=== PATIENT | female | born 1945 | race Caucasian/White ===

== ENCOUNTER → 2018-04-29 07:36 | Outpatient (CLI) | payer OTHER, MEDICARE, SELFPAY ==
--- NOTE | 2018-04-29 | DI.MG.S_ITS ---
BILATERAL DIGITAL SCREENING MAMMOGRAM 3D/2D WITH CAD: 04/29/2018 CLINICAL: Routine screening. Comparison is made to exams dated: 04/23/2017 mammogram, 04/22/2016 mammogram, and 12/24/2014 mammogram - [facility]. There are scattered fibroglandular elements in both breasts. Current study was also evaluated with a Computer Aided Detection (CAD) system. There are benign vascular calcifications in both breasts. No significant masses, calcifications, or other findings are seen in either breast. There has been no significant interval change. IMPRESSION: BENIGN There is no mammographic evidence of malignancy. A 1 year screening mammogram is recommended. This exam was interpreted at Station ID: [id number]. NOTE: For mammograms, a report in lay terms will be sent to the patient. Approximately 15% of breast malignancies will not be visualized mammographically. In the management of a palpable breast mass, a negative mammogram must not discourage biopsy of a clinically suspicious lesion. Electronically Signed By: Miguel A miranda/vivien:05/01/2018 21:13:23 letter sent: Normal Exam ACR BI-RADS Category 2: Benign Finding(s) 3342F
== END ==
PROVIDERS: Visit Provider Internal Medicine
DX: Z12.31 Encounter for screening mammogram for malignant neoplasm of breast (principal)
CPT/HCPCS: 77063; 77067

== ENCOUNTER → 2018-10-11 09:28 | Outpatient (CLI) | payer OTHER, MEDICARE, SELFPAY ==
[2018-10-14 18:09] LABS: Fecal Immunochemical Test NOT DETECTED (NOT DETECTED)
== END ==
PROVIDERS: PCP Student in an Organized Health Care Education/Training Program; Visit Provider Student in an Organized Health Care Education/Training Program
DX: Z00.00 Encounter for general adult medical examination without abnormal findings (principal); Z12.11 Encounter for screening for malignant neoplasm of colon
CPT/HCPCS: 82274

== ENCOUNTER → 2018-10-12 09:03 | Outpatient (CLI) | payer OTHER, MEDICARE, SELFPAY ==
[2018-10-12 10:08] LABS: Cholesterol 301 mg/dL (140-199); HDL Cholesterol 45 mg/dL (40-60); LDL Cholesterol Calculated 179 mg/dL (<100); Triglycerides 384 mg/dL (35-150)
== END ==
PROVIDERS: PCP Student in an Organized Health Care Education/Training Program; Visit Provider Student in an Organized Health Care Education/Training Program
DX: R20.2 Paresthesia of skin (principal)
CPT/HCPCS: 36415; 80061

== ENCOUNTER 2019-02-14 09:16 | Emergency (ER) | payer OTHER, SELFPAY ==
[2019-02-14 09:25] VITALS: BP 150/80; PULSE 97; RESP 16; TEMP 36.8; O2SAT 97; BMI 21.8
--- NOTE | 2019-02-14 09:29 | DI.RAD.S_ITS ---
PROCEDURE: XR ANKLE RT MIN 3V INDICATIONS: injury TECHNIQUE: 3 views of the ankle were acquired. COMPARISON: [facility], , ANKLE 3 VIEWS LEFT, 11/05/2008, 13:41. FINDINGS: Bones: There is a nondisplaced transverse fracture identified through the tip of the lateral malleolus. Irregular ovoid ossific structures are evident at the tip of the medial malleolus, which are well-corticated and appear to represent sequela from previous trauma. The ankle mortise is well-maintained. There are mild degenerative changes of the tibiotalar joint. Soft tissues: There is an ankle effusion. Moderate soft tissue swelling about the lateral malleolus is present. IMPRESSION: 1. Nondisplaced fracture at the lateral malleolus. 2. Old injury of the medial malleolus. Dictated by: Pedro Munoz M.D. on 02/14/2019 at 8:56 Approved by: Pedro Munoz M.D. on 02/14/2019 at 9:03
--- NOTE | 2019-02-14 12:04 | ED.LOWEXIN ---
HPI - Extremity Injury (Lower) <Gloria Harrell, LIEUTENANT/DEPUTY-BC - Last Filed: 02/14/19 14:26> General Chief Complaint: Extremity Injury, Lower Stated Complaint: thinks right ankle is broken Time Seen by Provider: 02/14/19 11:44 Source: patient Mode of arrival: ambulatory Limitations: no limitations History of Present Illness HPI Narrative: The patient is a 73-year-old female who states she has history of back problems who presents after a ground level fall. Not know when her last tetanus was. She presents with a chief complaint of right ankle pain, as well as an abrasion to her left knee. She believes that she broke her right ankle. She states it hurts on the outside, but not on the inside. She states she was able to hobble on after the trip and fall. She states she tripped and fell because of weakness that has become a chronic issue with her left ankle and foot. She also has abrasion to her left knee. She does not know when her last tetanus was. She denies any numbness, tingling or other injuries. The patient drove herself to the emergency department. Related Data Home Medications Medication Instructions Recorded Confirmed CRANBERRY EXTRACT (Cranberry) 500 mg PO #0 05/11/11 12/26/18 Calcium Carbonate/Vitamin D 1 cap PO Q DAY #0 05/11/11 12/26/18 (#CALCIUM) Fish Oil (#FISH OIL) 1 iu PO #0 05/11/11 12/26/18 MULTIVITAMIN (#MULTIPLE VITAMINS) 1 cap PO Q DAY #0 05/11/11 12/26/18 VITAMIN B COMPLEX 1 cap PO #0 05/11/11 12/26/18 CHOLECALCIFEROL (VITAMIN D) 2,000 units PO QDAY #0 08/25/12 12/26/18 Chondroitin Sulfate/Glucosam #0 12/27/12 12/26/18 (GLUCOSAMINE/CHONDROITIN) aspirin 81 mg tablet,delayed 81 mg PO DAILY 12/06/18 12/26/18 release Previous Rx's Medication Instructions Recorded pravastatin 20 mg tablet 20 mg PO DAILY #30 tab 11/09/18 metaxalone 800 mg tablet 800 mg PO DAILY PRN #10 tab 12/06/18 prednisone 10 mg tablet 10 mg PO DAILY #14 tab 12/06/18 prednisone 50 mg tablet 50 mg PO DAILY #30 tab 12/06/18 prednisone 20 mg tablet 40 mg PO DAILY #15 tab 12/26/18 prednisone 5 mg tablet 5 mg PO DAILY #7 tab 12/26/18 gabapentin 100 mg capsule 100 mg PO BEDTIME #30 cap 01/11/19 hydrocodone-acetaminophen [Foreston] 1 tab PO Q4-6H PRN #10 tab 02/14/19 Allergies Allergy/AdvReac Type Severity Reaction Status Date / Time propoxyphene [From DARVON] Allergy Unknown Verified 02/14/19 09:23 Review of Systems <Gloria Harrell [facility] - Last Filed: 02/14/19 14:26> Review of Systems GENERAL: Denies chills, fatigue, malaise, fever, sweats. HEENT: Denies sinus pain, ear pain, sore throat, difficulty swallowing, dizziness. RESPIRATORY: Denies dyspnea, cough, wheezing, hemoptysis, sputum. CARDIOVASCULAR: Denies chest pain, palpitations, orthopnea, edema, GASTROINTESTINAL: Denies nausea, vomiting, abdominal pain, diarrhea, constipation, melena. : Denies dysuria, frequency, incontinence, hematuria, urinary retention. MUSCULOSKELETAL: See HPI SKIN: See HPI NEUROLOGIC: Denies weakness, headache, numbness, change in speech, confusion, seizures, incoordination. PSYCHIATRIC: No concerning psychosocial issues. 12 point review of systems is negative except for those stated above PFSH <Gloria Harrell [facility] - Last Filed: 02/14/19 14:26> Social History Smoking Status: Never smoker Exam <Gloria Harrell [facility] - Last Filed: 02/14/19 14:26> Narrative Exam Narrative: GENERAL: This is a well-nourished, well-developed patient, in no acute distress HEAD: Atraumatic. Normocephalic. No temporal or scalp tenderness. EYES: Pupils equal round and reactive. Extraocular motions intact. No scleral icterus. No injection or drainage. ENT: Nose without bleeding, purulent drainage or septal hematoma. Throat without erythema, tonsillar hypertrophy or exudate. Uvula midline. Airway patent. NECK: Trachea midline. No JVD or lymphadenopathy. Supple, nontender, no meningeal signs. CARDIOVASCULAR: Regular rate and rhythm RESPIRATORY: No cough. No increased respiratory effort. No accessory muscle use. GASTROINTESTINAL: Abdomen soft, non-tender, nondistended. No hepato-splenomegaly, or palpable masses. No guarding. EXTREMITIES: Pain to palpation right ankle. Swelling noted lateral aspect. No pain to palpation medial aspect of right ankle. Positive pedal pulses. Slight ecchymosis noted lateral malleolus. Patient is able to flex and extend right ankle. BACK: Nontender without deformity or crepitance. No flank tenderness. NEURO: AOx3. SKIN: Small abrasion noted to cm left knee Initial Vital Signs Initial Vital Signs: Vital Signs Temperature 98.2 F 02/14/19 09:25 Pulse Rate 97 H 02/14/19 09:25 Respiratory Rate 16 02/14/19 09:25 Blood Pressure 150/80 H 02/14/19 09:25 Pulse Oximetry 97 02/14/19 09:25 <Nika Gilbert MD - Last Filed: 02/14/19 20:36> Initial Vital Signs Initial Vital Signs: Vital Signs Temperature 98.2 F 02/14/19 09:25 Pulse Rate 97 H 02/14/19 09:25 Respiratory Rate 16 02/14/19 09:25 Blood Pressure 150/80 H 02/14/19 09:25 Pulse Oximetry 97 02/14/19 09:25 Procedures <TRA Sandhu - Last Filed: 02/14/19 14:26> Orthopedic Splinting/Casting Injury #1: Side: right Lower Extremity Injury Location: ankle Lower Extremity Immobilizer: boot orthosis Other Orthopedic Equipment: crutches Post splinting neuro exam: intact Post splinting vascular exam: intact Placed by: Nursing Course <TRA Sandhu - Last Filed: 02/14/19 14:26> Orders Ordered: Discontinued Medications Diphtheria/Tetanus/Acell Pertussis (Adacel) 0.5 ml IM .ONCE ONE Stop: 02/14/19 11:52 Last Admin: 02/14/19 12:05 Dose: 0.5 ml Vital Signs - 8 hr 02/14/19 13:00 Pulse Rate 94 H Respiratory Rate 20 Blood Pressure 157/88 H Pulse Oximetry 100 <Nika Gilbert MD - Last Filed: 02/14/19 20:36> Orders Ordered: Discontinued Medications Diphtheria/Tetanus/Acell Pertussis (Adacel) 0.5 ml IM .ONCE ONE Stop: 02/14/19 11:52 Last Admin: 02/14/19 12:05 Dose: 0.5 ml Vital Signs - 8 hr 02/14/19 13:00 Pulse Rate 94 H Respiratory Rate 20 Blood Pressure 157/88 H Pulse Oximetry 100 MDM - Extremity Injury (Lower) <Gloria HarrellSTEVE-BC - Last Filed: 02/14/19 14:26> Imaging Data Ankle x-ray: Radiologist's impression: Aquiles Vasquez 73 F 1945 [place] [address] XRay Report Signed Patient: Aquiles Vasquez AMR#: [id number] : 5Acct:[id number] Age/Sex: 73 / FDate of Service: 02/14/19 Loc: ED Accession Number: [id number] Procedure: XR ankle RT min 3V Ordering Provider: Nika Gilbert MD PROCEDURE: XR ANKLE RT MIN 3V INDICATIONS: injury TECHNIQUE: 3 views of the ankle were acquired. COMPARISON: [facility], , ANKLE 3 VIEWS LEFT, 11/05/2008, 13:41. FINDINGS: Bones: There is a nondisplaced transverse fracture identified through the tip of the lateral malleolus. Irregular ovoid ossific structures are evident at the tip of the medial malleolus, which are well-corticated and appear to represent sequela from previous trauma. The ankle mortise is well-maintained. There are mild degenerative changes of the tibiotalar joint. Soft tissues: There is an ankle effusion. Moderate soft tissue swelling about the lateral malleolus is present. IMPRESSION: 1. Nondisplaced fracture at the lateral malleolus. 2. Old injury of the medial malleolus. Dictated by: Pedro Munoz M.D. on 02/14/2019 at 8:56 Approved by: Pedro Munoz M.D. on 02/14/2019 at 9:03 MDM Narrative Medical decision making narrative: The patient is a 73-year-old female who presents with a chief complaint of right ankle injury. X-ray illustrates lateral malleolus fracture, so the patient was placed in a boot as well as given crutches. I was not comfortable giving the patient a splint given her history of recent falls and she complains of chronic weakness on her left ankle and foot. Thus I am concerned that a splint would increase her risk of falls. I did discuss refraining from weight-bearing as able. Using crutches. She was given a prescription of Foreston. I discussed at length follow up with Orthopedics. Patient's x-rays reviewed with Dr. Gilbert and plan of care discussed. Given the patient's abrasion, her tetanus was updated. Discussed at length follow up with PCP as well as Orthopedics. Patient has no questions or concerns upon discharge. I discussed that she is neurovascularly intact, she has any concerns about neurovascular status come back to the ER as well as to come back to the ER for any acute concerns Discharge Plan Departure Patient Disposition: Home Clinical Impression: Abrasion, Fall from ground level Ankle fracture, lateral malleolus, closed Qualifiers: Encounter type: initial encounter Fracture alignment: nondisplaced Laterality: right Qualified Code(s): S82.64XA - Nondisplaced fracture of lateral malleolus of right fibula, initial encounter for closed fracture Discharge Date/Time: 02/14/19 12:49 Interventions: ED Discharge Assessment Last Done: 02/14/19 13:00 Instructions: How to Use Crutches, DI for Ankle Fracture, How To Perform RICE (Rest, Ice, Compress, Elevate), DI for Abrasion Activity Restrictions/Additional Instructions: Unfortunately you broke your ankle. We have placed you in a boot and given crutches Please try to remain nonweightbearing. Please use rest ice compression elevation. Please follow-up with [facility]. Please also follow up with primary care provider Please come back to the emergency department for any concerns such as decreased circulation to your toes. We also updated your tetanus. Please monitor your abrasion for signs and symptoms of infection such as redness pus and swelling. Please be aware that Foreston can be constipating and sedating. Prescriptions: New hydrocodone-acetaminophen [Foreston] 5-325 mg tablet 1 tab PO Q4-6H PRN (Reason: pain) Qty: 10 RF: 0 No Action Calcium Carbonate/Vitamin D (#CALCIUM) 1 cap PO Q DAY Qty: 0 RF: 0 MULTIVITAMIN (#MULTIPLE VITAMINS) 1 cap PO Q DAY Qty: 0 RF: 0 Fish Oil (#FISH OIL) 1 iu PO Qty: 0 RF: 0 VITAMIN B COMPLEX 1 cap PO Qty: 0 RF: 0 CRANBERRY EXTRACT (Cranberry) 500 mg PO Qty: 0 RF: 0 CHOLECALCIFEROL (VITAMIN D) 2,000 units PO QDAY Qty: 0 RF: 0 Chondroitin Sulfate/Glucosam (GLUCOSAMINE/CHONDROITIN) Qty: 0 RF: 0 oxyquinoline-sod.lauryl sulfat 113.4 GM gel Qty: 1 RF: 0 oxyquinoline-sod.lauryl sulfat 113.4 GM gel Qty: 2 RF: 0 pravastatin 20 mg tablet 20 mg PO DAILY Qty: 30 RF: 5 gabapentin 100 mg capsule 100 mg PO BEDTIME Qty: 30 RF: 5 aspirin 81 mg tablet,delayed release (DR/EC) 81 mg PO DAILY RF: 0 prednisone 50 mg tablet 50 mg PO DAILY Qty: 30 RF: 0 metaxalone [Skelaxin] 800 mg tablet 800 mg PO DAILY PRN (Reason: muscle pain/spasms) Qty: 10 RF: 1 Hold Instructions: Not working for pain prednisone 10 mg tablet 10 mg PO DAILY Qty: 14 RF: 0 prednisone 20 mg tablet 40 mg PO DAILY Qty: 15 RF: 0 prednisone 5 mg tablet 5 mg PO DAILY Qty: 7 RF: 0 Referrals: [facility] [Provider Group] Rufus Magaña MD [Primary Care Provider] - Stand Alone Forms: Work Release Note
[2019-02-14] MEDS: TET,DIPH,PERTUSS(ACELL),VAC/PF 0.5 ML SYRINGE IM (12:05)
[2019-02-14 13:00] VITALS: BP 157/88; PULSE 94; RESP 20; O2SAT 100
== END 2019-02-14 12:49 | disposition home or self-care (01) ==
PROVIDERS: Emergency Provider Nurse Practitioner Family; PCP Student in an Organized Health Care Education/Training Program; Referring Provider Orthopaedic Surgery Orthopaedic Surgery of the Spine
DX: S82.64XA Nondisplaced fracture of lateral malleolus of right fibula, initial encounter for closed fracture (principal); W01.0XXA Fall on same level from slipping, tripping and stumbling without subsequent striking against object, initial encounter; Y99.0 Civilian activity done for income or pay; Z23 Encounter for immunization
CPT/HCPCS: 29580; 73610; 90471; 99283; 90715

== ENCOUNTER → 2019-05-03 09:34 | Outpatient (CLI) | payer OTHER, MEDICARE, SELFPAY ==
--- NOTE | 2019-05-03 | DI.MG.S_ITS ---
BILATERAL DIGITAL SCREENING MAMMOGRAM 3D/2D WITH CAD: 05/03/2019 CLINICAL: Routine screening. Comparison is made to exams dated: 04/29/2018 mammogram, 04/23/2017 mammogram, 04/22/2016 mammogram, 12/24/2014 mammogram, and 12/04/2013 mammogram - [facility]. There are scattered fibroglandular elements in both breasts. Current study was also evaluated with a Computer Aided Detection (CAD) system. There are benign vascular calcifications in both breasts. No significant masses, calcifications, or other findings are seen in either breast. There has been no significant interval change. IMPRESSION: There is no mammographic evidence of malignancy. A 1 year screening mammogram is recommended. This exam was interpreted at Station ID: [id number]. NOTE: For mammograms, a report in lay terms will be sent to the patient. Approximately 15% of breast malignancies will not be visualized mammographically. In the management of a palpable breast mass, a negative mammogram must not discourage biopsy of a clinically suspicious lesion. Electronically Signed By: Dwight macdonald/vivien:05/03/2019 19:28:41 letter sent: Normal Exam ACR BI-RADS Category 2: Benign Finding(s) 3342F
== END ==
PROVIDERS: PCP Nurse Practitioner; Visit Provider Nurse Practitioner
DX: Z12.31 Encounter for screening mammogram for malignant neoplasm of breast (principal)
CPT/HCPCS: 77063; 77067

== ENCOUNTER → 2019-09-18 09:21 | Outpatient (CLI) | payer OTHER, MEDICARE, SELFPAY | PROVIDERS: PCP Nurse Practitioner | DX: Z12.11 Encounter for screening for malignant neoplasm of colon (principal) | CPT/HCPCS: 82274 ==

== ENCOUNTER → 2019-10-23 10:05 | Outpatient (CLI) | payer OTHER, MEDICARE, SELFPAY ==
[2019-10-25 17:35] LABS: Fecal Immunochemical Test DETECTED (NOT DETECTED)
== END ==
PROVIDERS: PCP Nurse Practitioner
DX: Z12.11 Encounter for screening for malignant neoplasm of colon (principal)
CPT/HCPCS: 82274

== ENCOUNTER → 2020-02-12 14:12 | Outpatient (CLI) | payer OTHER, MEDICARE, SELFPAY | PROVIDERS: PCP Nurse Practitioner; Referring Provider Nurse Practitioner; Visit Provider Nurse Practitioner | DX: M81.0 Age-related osteoporosis without current pathological fracture (principal); Z78.0 Asymptomatic menopausal state; Z82.62 Family history of osteoporosis | CPT/HCPCS: 77080 ==

== ENCOUNTER → 2020-02-16 09:25 | Outpatient (CLI) | payer OTHER, MEDICARE, SELFPAY | PROVIDERS: PCP Nurse Practitioner | DX: Z12.11 Encounter for screening for malignant neoplasm of colon (principal) | CPT/HCPCS: 82274 ==

== ENCOUNTER → 2020-05-06 10:48 | Outpatient (CLI) | payer MEDICARE, OTHER, SELFPAY ==
--- NOTE | 2020-05-06 11:07 | DI.MG.S_ITS ---
Patient Name: NABIL MALIK date: 1945 Sex: F Attending Physician: Sohail Indications: Date: 05/06/2020 11:07 At the request of: RUSSELL MURPHY Procedure: MM screening mammo BI BILATERAL DIGITAL SCREENING MAMMOGRAM 3D/2D WITH CAD: 05/06/2020 CLINICAL: Routine screening. Comparison is made to exams dated: 05/06/2020 mammogram, 05/03/2019 mammogram, and 04/29/2018 mammogram - [facility]. There are scattered fibroglandular elements in both breasts. Current study was also evaluated with a Computer Aided Detection (CAD) system. There are benign vascular calcifications in both breasts. No significant masses, calcifications, or other findings are seen in either breast. There has been no significant interval change. IMPRESSION: BENIGN There is no mammographic evidence of malignancy. A 1 year screening mammogram is recommended. This exam was interpreted at Station ID: [id number]. NOTE: For mammograms, a report in lay terms will be sent to the patient. Approximately 15% of breast malignancies will not be visualized mammographically. In the management of a palpable breast mass, a negative mammogram must not discourage biopsy of a clinically suspicious lesion. Electronically Signed By: Harmony hunter/vivien:05/06/2020 13:56:53 letter sent: Normal Exam ACR BI-RADS Category 2: Benign Finding(s) 3342F
== END ==
PROVIDERS: PCP Nurse Practitioner; Referring Provider Nurse Practitioner; Visit Provider Nurse Practitioner
DX: Z12.31 Encounter for screening mammogram for malignant neoplasm of breast (principal)
CPT/HCPCS: 77063; 77067

== ENCOUNTER → 2020-09-17 15:26 | Outpatient (CLI) | payer MEDICARE, OTHER, SELFPAY ==
[2020-09-17] MEDS: COVID-19 VACC #1, MRNA(MOD) 100 MCG/0.5 ML VIAL IM (15:33)
== END ==
PROVIDERS: PCP Nurse Practitioner; Visit Provider Internal Medicine
DX: Z23 Encounter for immunization (principal)
CPT/HCPCS: 0011A; 91301

== ENCOUNTER → 2020-10-15 15:34 | Outpatient (CLI) | payer MEDICARE, OTHER, SELFPAY ==
[2020-10-15] MEDS: COVID-19 VACC #2, MRNA(MOD) 100 MCG/0.5 ML VIAL IM (15:41)
== END ==
PROVIDERS: PCP Nurse Practitioner; Visit Provider Internal Medicine
DX: Z23 Encounter for immunization (principal)
CPT/HCPCS: 0012A; 91301

== ENCOUNTER → 2021-02-10 07:42 | Outpatient (CLI) | payer MEDICARE, OTHER, SELFPAY ==
[2021-02-10 09:33] LABS: Alanine Aminotransferase 22 IU/L (<35); Albumin Globulin Ratio 1.5 (1.0-2.8); Alkaline Phosphatase 47 U/L (38-126); Aspartate Aminotransferase 27 IU/L (14-36); BUN Creatinine Ratio 28.3 (6-22); Bilirubin Total 0.6 mg/dL (0.2-1.3); Blood Urea Nitrogen 17 mg/dL (7-17); Calcium 9.5 mg/dL (8.4-10.2); Carbon Dioxide 26 mmol/L (22-32); Chloride 105 mmol/L (98-107); Cholesterol 244 mg/dL (140-199); Estimated Glomerular Filt Rate > 60.0 mL/min (>60); Globulin 2.7 g/dL (1.7-4.1); Glucose 103 mg/dL (80-110); HDL Cholesterol 41 mg/dL (40-60); HEMOLYSIS < 15 (0-50); LDL Cholesterol Calculated 132 mg/dL (<100); Potassium 4.2 mmol/L (3.4-5.1); Sodium 138 mmol/L (137-145); Total Protein 6.7 g/dL (6.3-8.2); Triglycerides 357 mg/dL (35-150)
[2021-02-10 09:45] LABS: Free T3, Triiodothyronine Free 3.76 pg/mL (2.77-5.27)
[2021-02-10 09:46] LABS: Free T4, Direct Thyroxine 0.82 ng/dL (0.78-2.19)
[2021-02-10 10:00] LABS: Thyroid Stimulating Hormone 2.41 uIU/mL (0.47-4.68)
== END ==
PROVIDERS: PCP Nurse Practitioner; Referring Provider Nurse Practitioner; Visit Provider Nurse Practitioner
DX: E78.2 Mixed hyperlipidemia (principal); Z79.899 Other long term (current) drug therapy
CPT/HCPCS: 36415; 80053; 80061; 84439; 84443; 84481

== ENCOUNTER → 2021-05-15 18:06 | Outpatient (CLI) | payer MEDICARE, OTHER, SELFPAY ==
--- NOTE | 2021-05-15 18:08 | DI.MG.S_ITS ---
BILATERAL DIGITAL SCREENING MAMMOGRAM 3D/2D WITH CAD: 05/15/2021 CLINICAL: Routine screening. Comparison is made to exams dated: 05/06/2020 mammogram, 05/06/2020 mammogram, and 05/03/2019 mammogram - [facility]. There are scattered fibroglandular elements in both breasts. Current study was also evaluated with a Computer Aided Detection (CAD) system. There are benign vascular calcifications in both breasts. No significant masses, calcifications, or other findings are seen in either breast. There has been no significant interval change. IMPRESSION: BENIGN There is no mammographic evidence of malignancy. A 1 year screening mammogram is recommended. This exam was interpreted at Station ID: [id number]. NOTE: For mammograms, a report in lay terms will be sent to the patient. Approximately 15% of breast malignancies will not be visualized mammographically. In the management of a palpable breast mass, a negative mammogram must not discourage biopsy of a clinically suspicious lesion. Electronically Signed By: Jackie caceres/vivien:05/16/2021 09:00:50 letter sent: Normal Exam ACR BI-RADS Category 2: Benign Finding(s) 3342F
== END ==
PROVIDERS: PCP Nurse Practitioner; Referring Provider Nurse Practitioner; Visit Provider Nurse Practitioner
DX: Z12.31 Encounter for screening mammogram for malignant neoplasm of breast (principal)
CPT/HCPCS: 77063; 77067

== ENCOUNTER → 2021-06-21 09:31 | Outpatient (CLI) | payer MEDICARE, OTHER, SELFPAY | PROVIDERS: PCP Nurse Practitioner; Referring Provider Physician Assistant; Visit Provider Physician Assistant | DX: R35.0 Frequency of micturition (principal) | CPT/HCPCS: 87077; 87086; 87147; 87186 ==

== ENCOUNTER → 2021-07-08 10:20 | Outpatient (CLI) | payer MEDICARE, OTHER, SELFPAY ==
[2021-07-08 11:14] LABS: Appearance Urine UA CLEAR; Bilirubin Urine UA NEGATIVE (NEGATIVE); Color Urine UA YELLOW; Glucose Urine UA NEGATIVE (Negative); Ketones Urine UA NEGATIVE (NEGATIVE); Leukocyte Esterase Urine UA 1+ (NEGATIVE); Nitrite Urine UA NEGATIVE (Negative); Occult Blood Urine UA 2+ (Negative); Protein Urine UA 1+ (Negative); Urobilinogen Urine UA 0.2 E.U./dL (0.2)
[2021-07-08 11:21] LABS: pH Urine UA 5.5 (4.5-8.0)
[2021-07-08 11:22] LABS: RBC Urine 5-10/HPF (0-5/HPF); Squamous Epithelial Cell Urine 5-10 /HPF (0-5/HPF); WBC Urine 5-10/HPF (0-5/HPF)
[2021-07-08 11:23] LABS: Bacteria Urine None Seen; Culture Indicated Urine Cult Not Indicated; Mucus Urine 1+ (Negative)
== END ==
PROVIDERS: PCP Nurse Practitioner; Referring Provider Nurse Practitioner Family; Visit Provider Nurse Practitioner Family
DX: Z87.440 Personal history of urinary (tract) infections (principal); N39.0 Urinary tract infection, site not specified
CPT/HCPCS: 81003; 81015; 87086

== ENCOUNTER → 2021-07-09 09:04 | Outpatient (CLI) | payer MEDICARE, OTHER, SELFPAY ==
[2021-07-10 19:52] LABS: C difficie Toxins A and B, EIA Negative (Negative)
== END ==
PROVIDERS: PCP Nurse Practitioner; Referring Provider Nurse Practitioner Family; Visit Provider Nurse Practitioner Family
DX: R19.7 Diarrhea, unspecified (principal)
CPT/HCPCS: 87045; 87177; 87324; 87899

== ENCOUNTER 2021-07-14 07:14 | Emergency (ER) | payer MEDICARE, OTHER, SELFPAY ==
[2021-07-14 07:26] VITALS: BP 170/97; PULSE 109; RESP 18; TEMP 37.2; O2SAT 99; BMI 23.3
--- NOTE | 2021-07-14 07:28 | ED.GENADULT ---
HPI - General Adult General Chief complaint: Nasal Problem Stated complaint: nose bleed x20 min Time Seen by Provider: 07/14/21 07:17 Source: patient Mode of arrival: Ambulatory Limitations: no limitations History of Present Illness HPI narrative: Patient is a 75-year-old female here for evaluation of a nose bleed. She has had multiple nose bleeds in the past. She is not on any blood thinning medications. She denies even taking aspirin. No trauma. Started bleeding this morning. Tried Afrin at home. She feels like it is coming from the right nostril mostly but is also coming from the left as well. Related Data Home Medications Medication Instructions Recorded Confirmed CRANBERRY EXTRACT (Cranberry) 500 mg PO #0 05/11/11 07/08/21 Calcium Carbonate/Vitamin D 1 cap PO Q DAY #0 05/11/11 07/08/21 (#CALCIUM) Fish Oil (#FISH OIL) 1 iu PO #0 05/11/11 07/08/21 MULTIVITAMIN (#MULTIPLE VITAMINS) 1 cap PO Q DAY #0 05/11/11 07/08/21 VITAMIN B COMPLEX 1 cap PO #0 05/11/11 07/08/21 CHOLECALCIFEROL (VITAMIN D) 2,000 units PO QDAY #0 08/25/12 07/08/21 Chondroitin Sulfate/Glucosam #0 12/27/12 07/08/21 (GLUCOSAMINE/CHONDROITIN) aspirin 81 mg tablet,delayed 81 mg PO DAILY 12/06/18 07/08/21 release Previous Rx's Medication Instructions Recorded permethrin 5 % topical cream 1 applictn TOP Q14D #60 gram 03/25/20 oxyquinoline 0.025 %-sodium lauryl 1 ea VAGINAL .2-3 x weekly #226.8 g 08/12/20 sulfate 0.01 % vaginal gel alendronate 70 mg tablet 70 mg PO QWEEK #14 tab 02/18/21 pravastatin 20 mg tablet 20 mg PO DAILY #90 tab 02/18/21 estradiol 1 g VAGINAL DAILY #42.5 g 04/18/21 ciprofloxacin HCl 500 mg tablet 500 mg PO Q12H #10 tab 06/24/21 (Cipro) fluconazole 150 mg tablet 150 mg PO Q3D PRN #2 tab 06/24/21 Allergies Allergy/AdvReac Type Severity Reaction Status Date / Time propoxyphene [From DARVON] Allergy Unknown Verified 07/14/21 07:26 Review of Systems Constitutional Constitutional: Denies headache(s) ENT Ears, Nose, Mouth, and Throat: Reports system reviewed and no additional complaints, except as documented, Reports as per HPI and Denies headache(s) Cardiovascular Cardiovascular: Reports system reviewed and no additional complaints, except as documented Respiratory Respiratory: Reports system reviewed and no additional complaints, except as documented Gastrointestinal Gastrointestinal: Reports system reviewed and no additional complaints, except as documented Neurologic Neurologic: Denies headache(s) Hematologic/Lymphatic On Anticoagulants: No Patient History Medical History Atrophic vaginitis Chicken pox Contusion of right upper arm (10/23/15) Fractures Frequency of urination Giant cell arteritis Hayfever Hyperlipidemia Malignant melanoma of skin of chin Measles Mixed hyperlipidemia Mumps Nasal bone fracture Osteopenia Osteoporosis PMR (polymyalgia rheumatica) Post-menopausal atrophic vaginitis Prolapse of vaginal vault after hysterectomy Vaginal erosion secondary to pessary use Surgical History Anesthesia History of bladder suspension procedure (2009) Status post hysterectomy (1970) Status post wrist surgery (~2008) Family History Brother No problems noted. Father MVA (motor vehicle accident) Mother No problems noted. Grandfather No problems noted. Grandmother No problems noted. Grandfather No problems noted. Grandmother No problems noted. Sister No problems noted. Social History Smoking Status: Never smoker Smoking Status: Never smoker Exam Initial Vital Signs Initial Vital Signs: Vital Signs Temperature 98.9 F 07/14/21 07:26 Pulse Rate 109 H 07/14/21 07:26 Respiratory Rate 18 07/14/21 07:26 Blood Pressure 170/97 H 07/14/21 07:26 Pulse Oximetry 99 07/14/21 07:26 Const General: cooperative and healthy appearing HENMT Nose: septum normal and epistaxis (Clots in the right nares.) Resp Effort & Inspection: normal respiratory effort Cardio Rate: regular rate Skin General: no rashes or lesions noted Neuro General: patient alert, patient awake, patient oriented x3 and moves all extremities Extrem General: capillary refill normal Psych Appearance: grossly normal and well kempt Course Orders Ordered: Discontinued Medications Oxymetazoline HCl (Oxymetazoline Nasal [place] 15 Ml) 2 sprays NASAL NOW ONE Stop: 07/14/21 07:18 Last Admin: 07/14/21 07:47 Dose: 2 sprays Documented by: Vital Signs Vital signs: Vital Signs - 8 hr 07/14/21 07:26 Temperature 98.9 F Pulse Rate 109 H Respiratory Rate 18 Blood Pressure 170/97 H Pulse Oximetry 99 Medical Decision Making MDM Narrative Medical decision making narrative: With Afrin and pressure we were able to stop the bleeding. There is no signs of any trauma. No signs of any septal hematoma. Will discharge patient home. She was given a nasal clamp to use at home with needed. We discussed return precautions and follow-up instructions. She expressed understanding and agreement. Discharge Plan Departure Patient Disposition: Home Clinical Impression: Epistaxis Instructions: DI for Nosebleed Activity Restrictions/Additional Instructions: Continue to take all of your medications as directed. If you dose starts to bleed again performed the procedure that we discussed here in the ER. Return to the emergency department for any new or worsening symptoms. Prescriptions: No Action Calcium Carbonate/Vitamin D (#CALCIUM) 1 cap PO Q DAY Qty: 0 0RF MULTIVITAMIN (#MULTIPLE VITAMINS) 1 cap PO Q DAY Qty: 0 0RF Fish Oil (#FISH OIL) 1 iu PO Qty: 0 0RF VITAMIN B COMPLEX 1 cap PO Qty: 0 0RF CRANBERRY EXTRACT (Cranberry) 500 mg PO Qty: 0 0RF CHOLECALCIFEROL (VITAMIN D) 2,000 units PO QDAY Qty: 0 0RF Chondroitin Sulfate/Glucosam (GLUCOSAMINE/CHONDROITIN) Qty: 0 0RF permethrin 5 % cream 1 applictn TOP Q14D Qty: 60 0RF Rx Instructions: apply second treatment 14 days after first treatment if live lice remain oxyquinoline-sod.lauryl sulfat 0.025-0.01 % gel 1 ea vaginal .2-3 x weekly Qty: 226.8 2RF estradiol 0.01 % (0.1 mg/gram) cream 1 g vaginal DAILY Qty: 42.5 12RF Rx Instructions: for 14 days, then at bedtime 3 nights each week ciprofloxacin HCl [Cipro] 500 mg tablet 500 mg PO Q12H Qty: 10 0RF fluconazole 150 mg tablet 150 mg PO Q3D PRN (Reason: Yeast infection) Qty: 2 1RF Rx Instructions: Take 1 tab each morning every 72 hours x2 doses. aspirin 81 mg tablet,delayed release (DR/EC) 81 mg PO DAILY 0RF pravastatin 20 mg tablet 20 mg PO DAILY Qty: 90 3RF Rx Instructions: Take one tablet by mouth once daily in the evening. alendronate 70 mg tablet 70 mg PO QWEEK Qty: 14 3RF Rx Instructions: Take 1 tab by mouth on an empty stomach 30 minutes prior to breakfast daily Referrals: Judi Sauceda ARNP [Primary Care Provider] -
[2021-07-14] MEDS: OXYMETAZOLINE NASAL SPRAY 15 ML 2 SPRAYS NASAL (07:47)
== END 2021-07-14 08:33 | disposition home or self-care (01) ==
PROVIDERS: Emergency Provider Emergency Medicine; PCP Nurse Practitioner
DX: R04.0 Epistaxis (principal)
CPT/HCPCS: 99282; A9270

== ENCOUNTER → 2022-01-06 08:59 | Outpatient (CLI) | payer MEDICARE, OTHER, SELFPAY | PROVIDERS: PCP Nurse Practitioner; Visit Provider Physician Assistant | DX: R30.0 Dysuria (principal) | CPT/HCPCS: 87086 ==

== ENCOUNTER → 2022-03-13 10:04 | Outpatient (CLI) | payer MEDICARE, OTHER, SELFPAY | PROVIDERS: PCP Nurse Practitioner; Referring Provider Nurse Practitioner; Visit Provider Nurse Practitioner | DX: Z13.820 Encounter for screening for osteoporosis; Z78.0 Asymptomatic menopausal state; M85.89 Other specified disorders of bone density and structure, multiple sites | CPT/HCPCS: 77080 ==

== ENCOUNTER → 2022-06-05 12:52 | Outpatient (CLI) | payer MEDICARE, OTHER, SELFPAY ==
--- NOTE | 2022-06-05 | DI.MG.S_ITS ---
BILATERAL DIGITAL SCREENING MAMMOGRAM 3D/2D WITH CAD: 06/05/2022 CLINICAL: Routine screening. Comparison is made to exams dated: 05/15/2021 mammogram, 05/06/2020 mammogram, 05/03/2019 mammogram, and 05/06/2020 mammogram - [facility]. There are scattered areas of fibroglandular density in both breasts (category b / 25%-50% glandular tissue). Current study was also evaluated with a Computer Aided Detection (CAD) system. There are benign vascular calcifications in both breasts. No significant masses, calcifications, or other findings are seen in either breast. There has been no significant interval change. IMPRESSION: BENIGN There is no mammographic evidence of malignancy. A 1 year screening mammogram is recommended. Based on the Tyrer Cuzick model (a risk assessment model) the patient's lifetime risk is 2.4% and her 10 year risk is 0.0%. According to the ACR, ACS, and NCCN guidelines, an annual breast MRI exam along with mammogram is recommended if the patient's lifetime risk is 20% or greater. This exam was interpreted at Station ID: [id number]. NOTE: For mammograms, a report in lay terms will be sent to the patient. Approximately 15% of breast malignancies will not be visualized mammographically. In the management of a palpable breast mass, a negative mammogram must not discourage biopsy of a clinically suspicious lesion. Electronically Signed By: Jackie caceres/vivien:06/05/2022 16:23:37 letter sent: Normal Exam ACR BI-RADS Category 2: Benign Finding(s) 3342F
== END ==
PROVIDERS: PCP Nurse Practitioner; Referring Provider Nurse Practitioner; Visit Provider Nurse Practitioner
DX: Z12.31 Encounter for screening mammogram for malignant neoplasm of breast (principal)
CPT/HCPCS: 77063; 77067

== ENCOUNTER → 2022-07-14 07:50 | Outpatient (CLI) | payer MEDICARE, OTHER, SELFPAY ==
[2022-07-14 09:03] LABS: Add Manual Diff / Slide Review NO; Basophils Absolute Auto 0 /uL (0-100); Basophils Percent Auto 0.6 % (0-2); Eosinophils Absolute Auto 100 /uL (0-450); Eosinophils Percent Auto 1.3 % (2-4); Hematocrit 40.8 % (36-46); Hemoglobin 13.7 g/dL (12.0-16.0); Lymphocytes Absolute Auto 2200 /uL (1100-4500); Lymphocytes Percent Auto 44.1 % (25-40); Mean Corpuscular HGB Conc 33.6 % (30-36); Monocytes Absolute Auto 300 /uL (0-900); Monocytes Percent Auto 6.3 % (3-14); Neutrophils Absolute Auto 2400 /uL (1500-7000); Neutrophils Percent Auto 47.7 % (50-75); Platelet Count 255 X10^3/uL (150-400); Red Blood Cell Count 4.59 X10^6/uL (4.0-5.2); Red Cell Distribution Width 13.1 % (11.6-14.8); White Blood Cell Count 5.1 X10^3/uL (4.5-11.0)
[2022-07-14 09:37] LABS: HEMOLYSIS < 15 (0-50)
[2022-07-14 09:56] LABS: Alanine Aminotransferase 32 IU/L (<35); Albumin 4.1 g/dL (3.5-5.0); Albumin Globulin Ratio 1.4 (1.0-2.8); Alkaline Phosphatase 53 U/L (38-126); Aspartate Aminotransferase 29 IU/L (14-36); BUN Creatinine Ratio 24.3 (6-22); Bilirubin Total 0.5 mg/dL (0.2-1.3); Blood Urea Nitrogen 17 mg/dL (7-17); Calcium 9.2 mg/dL (8.4-10.2); Carbon Dioxide 29 mmol/L (22-32); Chloride 103 mmol/L (98-107); Cholesterol 254 mg/dL (140-199); Estimated Glomerular Filt Rate > 60 mL/min (>60); Globulin 2.9 g/dL (1.7-4.1); Glucose 95 mg/dL (80-110); HDL Cholesterol 43 mg/dL (40-60); Potassium 4.3 mmol/L (3.4-5.1); Sodium 139 mmol/L (137-145); Triglycerides 404 mg/dL (35-150)
[2022-07-14 10:04] LABS: Vitamin D 25 Hydroxy (D3) 46.1 ng/mL (30.0-100.0)
[2022-07-14 10:13] LABS: TSH w/ Reflex to FT4 4.31 uIU/mL (0.47-4.68)
[2022-07-14 15:49] LABS: Vitamin B12 863 pg/mL (239-931)
== END ==
PROVIDERS: PCP Nurse Practitioner; Referring Provider Nurse Practitioner; Visit Provider Nurse Practitioner
DX: Z00.00 Encounter for general adult medical examination without abnormal findings (principal); E78.5 Hyperlipidemia, unspecified; M81.0 Age-related osteoporosis without current pathological fracture; E56.9 Vitamin deficiency, unspecified; Z13.1 Encounter for screening for diabetes mellitus; Z13.6 Encounter for screening for cardiovascular disorders; Z13.29 Encounter for screening for other suspected endocrine disorder
CPT/HCPCS: 36415; 80053; 80061; 82306; 82607; 84443; 85025

== ENCOUNTER → 2022-09-11 08:46 | Outpatient (CLI) | payer MEDICARE, OTHER, SELFPAY ==
--- NOTE | 2022-09-11 08:47 | DI.US.S_ITS ---
PROCEDURE: US THYROID INDICATIONS: LEFT THYROID NODULE TECHNIQUE: Real-time scanning was performed of the thyroid gland, with image documentation. COMPARISON: None. FINDINGS: Right: Thyroid lobe measures 4 x 1.3 x 1.9 cm, and is homogeneous in echotexture. Left: Thyroid lobe measures 3.5 x 1.3 x 1.3 cm, and is homogenous in echotexture. Isthmus: 2.4 mm thick. Nodule number: 1 Location: Lateral periphery of right thyroid lobe upper to midpole. Size: 2.1 x 1.0 x 1.5 cm. Composition: Solid Echogenicity: Hypoechoic Shape: Wider than tall. Margins: Smooth Echogenic foci: None Total points: 4 ACR TI-RADS category: Moderately suspicious. Increased vascularity is noted within this nodule. IMPRESSION: 1. 2.1 x 1.0 x 1.5 cm moderately suspicious nodule in lateral aspect of midpole right thyroid lobe and show mildly increased vascularity. Consider fine-needle aspiration of this nodule for more definitive diagnosis. ACR TI-RADS definitions and recommendations: TI-RADS 1 (benign): 0 points. FNA not needed. TI-RADS 2 (not suspicious): 2 points. FNA not needed. TI-RADS 3 (mildly suspicious): 3 points. * FNA if 2.5 cm or larger, follow up if 1.5 cm or larger (at 1, 3, and 5 years). TI-RADS 4 (moderately suspicious): 4-6 points. * FNA if 1.5 cm or larger, follow up if 1 cm or larger (at 1, 2, 3, and 5 years). TI-RADS 5 (highly suspicious): 7 points or more. * FNA if 1 cm or larger, follow up if 0.5 cm or larger (every year for 5 years). Dictated by: Ayan Holcomb M.D. on 09/11/2022 at 15:20 Approved by: Ayan Holcomb M.D. on 09/11/2022 at 15:25
== END ==
PROVIDERS: PCP Nurse Practitioner; Referring Provider Nurse Practitioner; Visit Provider Nurse Practitioner
DX: E04.1 Nontoxic single thyroid nodule (principal)
CPT/HCPCS: 76536

== ENCOUNTER → 2022-09-24 10:00 | Outpatient (CLI) | payer MEDICARE, OTHER, SELFPAY ==
[2022-09-25 17:36] LABS: Fecal Immunochemical Test Negative (Negative)
== END ==
PROVIDERS: PCP Nurse Practitioner; Referring Provider Nurse Practitioner; Visit Provider Nurse Practitioner
DX: Z12.11 Encounter for screening for malignant neoplasm of colon (principal)
CPT/HCPCS: 82274

== ENCOUNTER → 2022-10-07 12:59 | Outpatient (CLI) | payer MEDICARE, OTHER, SELFPAY ==
--- NOTE | 2022-10-07 | PATH_ITS ---
Note [facility] Accession Number: [id number] TESTS RESULT FLAG UNITS REF RANGE LAB Clinician Provided Cytology Information No. of containers..01 Other (Miscellaneous) No. of containers..02 Previously Prepared Cytology Slide Source: RIGHT THYROID NODULE DIAGNOSIS: RIGHT THYROID NODULE NEGATIVE FOR MALIGNANT CELLS. B[place]ESDA CATEGORY II. SPECIMEN CONSISTS OF BENIGN FOLLICULAR CELLS, COLLOID, AND BLOOD. THIS PATTERN IS MOST CONSISTENT WITH A BENIGN FOLLICULAR NODULE. Pathologist ICD10: E04.1 Signed out by: Nika Rodriguez MD, Pathologist NPI- [id number] Performed by: Pito Hill, Simulation Software Engineer ([facility]) Gross description: 30 CC, PINK, CLEAR RECIEVED 6 ALCOHOL FIXED SLIDES IN 2 GREEN CAP COFFINS RECIEVED 6 FIXED SLIDES IN 2 SLIDE HOLDERS RECEIVED 1 RNA VIAL RECEIVED IN [employer] WHITE CAP CONTAINER /RZA 10/08/2022 1154 Local FLAG LEGEND: L-Low Normal,H-High Normal,LL-Alert Low,HH-Alert High <-Panic Low,>-Panic High,A-Abnormal,AA-Critical Abnormal Performed at: 01 =Z [facility] [address], [place] [address] Lukas Delgado MD, Performed at: [facility] [address], [place], [place] [id number] MD Lukas Delgado MD Phone: [phone]
--- NOTE | 2022-10-07 13:00 | DI.US.S_ITS ---
PROCEDURE: US FINE NEEDLE ASPIRATION INDICATIONS: RIGHT NODULE TECHNIQUE: The indications, alternatives, benefits, risks, and complications of the procedure were explained to the patient. Written informed consent was obtained and placed in the chart. The thyroid region was examined sonographically and a site was chosen for ultrasound guided percutaneous sampling. The skin was prepared and draped in the usual fashion, and anesthetized with 1% lidocaine infiltrated from the skin down to the thyroid gland. Multiple passes were then performed, with contents emptied into an appropriate pathology specimen container. A bandage was applied to the area of access at completion of the study. COMPARISON: None. FINDINGS: Location(s) of lesion(s) sampled: Right mid to lower pole thyroid lobe nodule [place]: 25 gauge hypodermic needles. Number of passes: 6 Medications: 1% lidocaine for local anaesthesia. Complications: None. IMPRESSION: Successful ultrasound-guided thyroid nodule fine needle aspiration, with cytology results pending. Please see chart below for management recommendations based on cytology results. [facility] ReportingRecommendationsNon-diagnostic* Repeat US-guided FNA, with on-site cytology evaluation if possible. * Repeated non-diagnostic nodules without high suspicion US features: close observation vs surgical consult. * Consider surgery if nodule has high suspicion US features, grows >20% in 2 dimensions on followup, or patient has clinical risk factors for malignancy. Benign* If nodule has high suspicion US features: repeat US and FNA within 12 months. * If nodule has low to intermediate suspicion US features: repeat US at 12-24 months. If nodule grows (20% increase in at least 2 dimensions, with minimal increase of 2 mm or >50% change in volume), or development of new suspicious US features, then repeat FNA or continue followup. * If nodule has very low suspicion US features: followup US at >24 months. Atypia of undetermined significance, follicular lesion of undetermined significanceRepeat FNA, molecular testing, followup US, or surgical consult.Follicular neoplasm, suspicious for follicular neoplasmSurgical consult; also consider molecular testing. Suspicious for malignancySurgical consult.MalignantSurgical consult. Dictated by: Ayan Holcomb M.D. on 10/07/2022 at 15:21 Approved by: Ayan Holcomb M.D. on 10/07/2022 at 15:21
== END ==
PROVIDERS: PCP Nurse Practitioner; Referring Provider Nurse Practitioner; Visit Provider Nurse Practitioner
DX: E04.1 Nontoxic single thyroid nodule (principal)
CPT/HCPCS: 10005

== ENCOUNTER → 2023-07-06 11:08 | Outpatient (CLI) | payer MEDICARE, OTHER, SELFPAY ==
--- NOTE | 2023-07-06 | DI.MG.S_ITS ---
BILATERAL DIGITAL SCREENING MAMMOGRAM 3D/2D WITH CAD: 07/06/2023 CLINICAL: Routine screening. Comparison is made to exams dated: 06/05/2022 mammogram, 05/15/2021 mammogram, and 05/06/2020 mammogram - [facility]. There are scattered areas of fibroglandular density in both breasts (category b / 25%-50% glandular tissue). Current study was also evaluated with a Computer Aided Detection (CAD) system. There are benign vascular calcifications in both breasts. No significant masses, calcifications, or other findings are seen in either breast. There has been no significant interval change. IMPRESSION: BENIGN There is no mammographic evidence of malignancy. A 1 year screening mammogram is recommended. Based on the Tyrer Cuzick model (a risk assessment model) the patient's lifetime risk is 2.1% and her 10 year risk is 0.0%. According to the ACR, ACS, and NCCN guidelines, an annual breast MRI exam along with mammogram is recommended if the patient's lifetime risk is 20% or greater. This exam was interpreted at Station ID: [id number]. NOTE: For mammograms, a report in lay terms will be sent to the patient. Approximately 15% of breast malignancies will not be visualized mammographically. In the management of a palpable breast mass, a negative mammogram must not discourage biopsy of a clinically suspicious lesion. Electronically Signed By: Matt metcalf/vivien:07/06/2023 12:16:29 letter sent: Normal Exam ACR BI-RADS Category 2: Benign Finding(s) 3342F
== END ==
PROVIDERS: PCP Nurse Practitioner; Referring Provider Nurse Practitioner; Visit Provider Nurse Practitioner
DX: Z12.31 Encounter for screening mammogram for malignant neoplasm of breast (principal)
CPT/HCPCS: 77063; 77067

== ENCOUNTER → 2023-09-21 08:56 | Outpatient (CLI) | payer MEDICARE, OTHER, SELFPAY ==
[2023-09-21 09:42] LABS: Influenza A - CEPHEID Flu A NEGATIVE (NEGATIVE); Influenza B - CEPHEID Flu B NEGATIVE (NEGATIVE); Respiratory Syncytial Virus Negative (Negative)
[2023-09-21 09:43] LABS: COVID-19 CEPHEID 4-PLEX PCR POSITIVE (Negative)
== END ==
PROVIDERS: PCP Nurse Practitioner; Visit Provider Physician Assistant Surgical
DX: R05.1 Acute cough (principal)
CPT/HCPCS: 0241U

== ENCOUNTER → 2024-01-18 09:26 | Outpatient (CLI) | payer MEDICARE, OTHER, SELFPAY ==
--- NOTE | 2024-01-18 09:29 | DI.RAD.S_ITS ---
PROCEDURE: XR MANDIBLE MIN 4V INDICATIONS: Jaw Pain, right TMJ soreness, rencent dental implant on left TECHNIQUE: 4 views of the mandible were acquired. COMPARISON: None. FINDINGS: Bones: No fractures or dislocations. Dental implants are noted. No suspicious bony lesions. Soft tissues: Visualized sinuses appear clear. No suspicious soft tissue densities. IMPRESSION: Dental implants are noted. No acute osseous abnormalities. Dictated by: Jovani Villareal M.D. on 01/18/2024 at 14:13 Approved by: Jovani Villareal M.D. on 01/18/2024 at 14:16
--- NOTE | 2024-01-18 09:29 | DI.RAD.S_ITS ---
PROCEDURE: XR DEXA AXIAL SKELETON INDICATIONS: Osteoporosis COMPARISON: [facility], CR, XR DEXA AXIAL SKELETON, 03/13/2022, 10:17. [facility], CR, XR DEXA AXIAL SKELETON, 02/12/2020, 14:44. FINDINGS: Lumbar Spine: Bone mineral density is 0.904 g/cm2, T score -1.3. Since the most recent prior study, there has been a statistically significant increase in bone mineral density by 5.4%. Left Hip: Bone mineral density 0.818 g/cm2, T score -1.0. Since the most recent prior study, there has been no statistically significant change in bone mineral density. Left Femoral Neck: Bone mineral density is 0.65 to g/cm2, T score -1.8. Right Hip: Bone mineral density is 0.794 g/cm2, T score -1.2. Since the most recent prior study, there has been no statistically significant change in bone mineral density. Right Femoral Neck: Bone mineral density is 0.631 g/cm2, T score -2.0. Fracture Risk Calculation (when applicable): 10-year fracture risk of a major osteoporotic fracture 14% and of a hip fracture 4.0%, assuming no prior osteoporotic fracture. (T score greater or equal to -1.0 to: NORMAL) (T score from -1.1 to -2.4: OSTEOPENIA) (T score less than or equal to -2.5: OSTEOPOROSIS) IMPRESSION: 1. By WHO criteria, patient has osteopenia. 2. 10-year fracture risk of a major osteoporotic fracture 14% and of a hip fracture 4.0%. 3. Interval statistically significant increase in bone mineral density at the lumbar spine when compared to the prior exam. No significant change in bone mineral density of the right or left hip. Follow-up guidelines as follows: Osteoporosis: Consider a repeat DEXA and Vertebral Fracture Assessment (VFA) exam in 2 years or sooner if medically necessary, to reassess this patient's status. Osteopenia: Consider a repeat DEXA in 2-3 years to reassess this patient's status, or if there is a new clinical indication. Normal: Consider a repeat DEXA in 5 years or sooner, or if there is a new clinical indication. All treatment decisions require clinical judgment and consideration of individual patient factors, including patient preferences, comorbidities, previous drug use, risk factors not captured in the FRAX model (e.g., frailty, falls, vitamin D deficiency, increased bone turnover, interval significant decline in bone density ) and possible under- or over-estimation of fracture risk by FRAX. In addition, the NOF Guide recommends that FDA-approved medical therapies be considered in postmenopausal women and men age >= 50 years with a: * Hip or vertebral (clinical or morphometric) fracture * T-score of <=-2.5 at the spine or hip * Ten-year fracture probability by FRAX of >= 3% for hip fracture or >=20% for major osteoporotic fracture. People with diagnosed cases of osteoporosis or at high risk for fracture should have regular bone mineral density tests. For patients eligible for Medicare, routine testing is allowed once every 2 years. The testing frequency can be increased to one year for patients who have rapidly progressing disease, those who are receiving or discontinuing medical therapy to restore bone mass, or have additional risk factors. t Approved by: Gerard Palomares M.D. on 01/18/2024 at 14:30
== END ==
PROVIDERS: Family Provider Nurse Practitioner; PCP Nurse Practitioner; Referring Provider Nurse Practitioner; Visit Provider Nurse Practitioner
DX: M81.0 Age-related osteoporosis without current pathological fracture (principal); R68.84 Jaw pain
CPT/HCPCS: 70110; 77080

== ENCOUNTER → 2024-04-03 07:51 | Outpatient (CLI) | payer MEDICARE, OTHER, SELFPAY ==
[2024-04-03 09:02] LABS: Hematocrit 39.3 % (36-46); Hemoglobin 13.2 g/dL (12.0-16.0); Mean Corpuscular HGB Conc 33.6 % (30-36); Mean Corpuscular Hemoglobin 30.3 PG (26-34); Mean Corpuscular Volume 90.1 fL (80-100); Platelet Count 226 X10^3/uL (150-400); Red Blood Cell Count 4.36 X10^6/uL (4.0-5.2); Red Cell Distribution Width 12.5 % (11.6-14.8); White Blood Cell Count 5.6 X10^3/uL (4.5-11.0)
[2024-04-03 09:28] LABS: Alanine Aminotransferase 25 IU/L (<35); Albumin 3.9 g/dL (3.5-5.0); Albumin Globulin Ratio 1.7 (1.0-2.8); Alkaline Phosphatase 46 U/L (38-126); Aspartate Aminotransferase 27 IU/L (14-36); BUN Creatinine Ratio 21.9 (6-22); Bilirubin Total 0.5 mg/dL (0.2-1.3); Blood Urea Nitrogen 16 mg/dL (7-17); Calcium 9.3 mg/dL (8.4-10.2); Carbon Dioxide 26 mmol/L (22-32); Chloride 108 mmol/L (98-107); Cholesterol 205 mg/dL (140-199); Estimated Glomerular Filt Rate > 60 mL/min (>60); Globulin 2.3 g/dL (1.7-4.1); Glucose 91 mg/dL (80-110); HDL Cholesterol 44 mg/dL (40-60); HEMOLYSIS < 15 (0-50); LDL Cholesterol Calculated 125 mg/dL (<100); Potassium 4.1 mmol/L (3.4-5.1); Sodium 141 mmol/L (137-145); Total Protein 6.2 g/dL (6.3-8.2); Triglycerides 181 mg/dL (35-150)
[2024-04-03 09:53] LABS: TSH w/ Reflex to FT4 2.41 uIU/mL (0.47-4.68)
== END ==
PROVIDERS: Family Provider Nurse Practitioner; PCP Internal Medicine; Referring Provider Internal Medicine; Visit Provider Internal Medicine
DX: Z85.820 Personal history of malignant melanoma of skin (principal); E78.2 Mixed hyperlipidemia; N95.1 Menopausal and female climacteric states
CPT/HCPCS: 36415; 80053; 80061; 84443; 85027

== ENCOUNTER 2024-04-06 14:24 | Inpatient (IN) | payer MEDICARE, OTHER, SELFPAY ==
[2024-04-06] VITALS (20 sets, daily range): BP systolic 85–149; BP diastolic 39–90; PULSE 75–889; RESP 13–26; TEMP 36.7–38.5; O2SAT 94–98; BMI 22.1; BMI 22.9
--- NOTE | 2024-04-06 | PATH_ITS ---
[facility] Accession Number: [id number] No. of containers..01 Tissue . 01 Material submitted: . small bowel - SMALL BOWEL, SEGMENTAL RESECTION . 01 Diagnosis: SMALL BOWEL, SEGMENTAL RESECTION: Segment of small bowel with severe diverticulitis, with region of mucosal necrosis and transmural suppurative inflammation. No dysplasia or malignancy identified. See comment. . Specimen Comments: While no definite perforation is found, there is extensive active inflammation of the serosa and subserosal adipose tissue, and the possibility of a microperforation is not ruled out. [facility] 04/11/2024 1355 Local . 01 Electronically signed: . Lukas Delgado MD, Pathologist NPI- [id number] . 01 Gross description: . Received in formalin, labeled with two identifiers and small bowel, is an unoriented segment of bowel (7.3 cm in length by 2.8 cm in diameter) with a small amount of adipose extending out to 4.2 cm. The serosa is violaceous with an area of adherent material consistent with exudate (3.5 x 1.2 cm). One staple line is inked blue, the opposite staple line is inked black, and the mesenteric margin is inked green. The lumen contains a small amount of brown semisolid material. The mucosa is pink-hobson and velvety with normal appearing folds. No distinct lesions are identified. The rubio measure up to 0.3 cm thick with diverticula extending into the adjacent adipose (1.7 cm in greatest dimension). The aforementioned presumed exudate is attached to the adipose directly adjacent to the diverticula; however, no distinct perforations can be identified. No additional lesions are identified. No lymph nodes are identified upon palpation. Restaurant General Manager sections are submitted as follows: A1: Restaurant General Manager margins en face. A2-A3: Diverticula. A4: Normal sections. ([id number]) /FRR 04/11/2024 [facility]5 Local . 01 Pathologist provided ICD-10: K57.01 . 01 CPT . 051387 Specimen Comment: A courtesy copy of this report has been sent to [phone] Performed at: [facility] [address], [place], [place] [id number] MD Lukas Delgado MD Phone: [phone]
--- NOTE | 2024-04-06 14:43 | EKG_ITS ---
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
--- NOTE | 2024-04-06 15:30 | ED_ITS ---
HPI - General Adult General Chief complaint: Abdominal Pain Stated complaint: abd px Time Seen by Provider: 04/06/24 15:23 Source: patient Mode of arrival: Wheelchair History of Present Illness HPI narrative: 78-year-old female here for evaluation of suprapubic of move a few states that her symptoms started earlier today have been consistent and worsening. She states that she does feel like she is emptying her bladder completely. She does have a pessary in place and thought maybe that was causing some issues she adjusted the pessary without any change in symptoms. Has not had a bowel movement today normally states she has daily bowel movements. Some nausea but no vomiting. No fevers. Has had a hysterectomy but no other abdominal surgeries. Related Data Home Medications Medication Instructions Recorded Confirmed Fish Oil (#FISH OIL) See Rx Instructions PO .COMPLEX ##0 07/27/22 03/29/24 vitamin B complex cap PO 03/14/24 03/29/24 mv-mn-folic 200 mcg-vit K 15 cap PO 03/29/24 03/29/24 mcg-lutein 5 mg-zeaxanthin 1 mg capsule (PreserVision AREDS 2 Plus Multivit) Previous Rx's Medication Instructions Recorded estradiol 0.01% (0.1 mg/gram) See Rx Instructions .Route 11/23/23 vaginal cream .COMPLEX #42.5 grams oxyquinoline 0.025 %-sodium lauryl 1 ea vaginal .1-2XW #226.8 grams 11/23/23 sulfate 0.01 % vaginal gel CHOLECALCIFEROL (VITAMIN D) See Rx Instructions PO BID #180 02/22/24 tabs Cranberry Supplement 500 mg PO .QD #90 caps 02/23/24 smewokia-zno-cejit acid 0.4 1 tab PO DAILY #90 tabs 02/23/24 mg-lycopene 300 mcg-lutein 250 mcg tablet (Centrum Silver) Calcium with Vitamin D 1 cap PO BID #180 tabs 03/01/24 omega-3 acid ethyl esters 1 gram 1 cap PO BID #180 caps 03/23/24 capsule (Lovaza) pravastatin 20 mg tablet 20 mg PO QPM #90 tabs 03/29/24 Allergies Allergy/AdvReac Type Severity Reaction Status Date / Time propoxyphene [From DARVON] Allergy Unknown Verified 04/06/24 14:42 Review of Systems Review of Systems ROS Unobtainable: All systems reviewed & are unremarkable except as noted in HPI and below Patient History Medical History Osteopenia History of melanoma Menopausal syndrome Right temporomandibular joint disorder, unspecified Atrophic vaginitis Mixed hyperlipidemia Prolapse of vaginal vault after hysterectomy Vaginal erosion secondary to pessary use Post-menopausal atrophic vaginitis Hayfever Fractures Malignant melanoma of skin of chin Mumps Measles Chicken pox Hyperlipidemia Contusion of right upper arm (10/23/15) Nasal bone fracture Surgical History Anesthesia Status post wrist surgery (~2008) History of bladder suspension procedure (2009) Status post hysterectomy (1970) Family History Brother No problems noted. Father MVA (motor vehicle accident) Mother No problems noted. Grandfather No problems noted. Grandmother No problems noted. Grandfather No problems noted. Grandmother No problems noted. Sister No problems noted. Social History details: 1987, son and daughter, retired Smoking Status: Never smoker Smoking Status: Never smoker Substance Use Type: does not use Exam Initial Vital Signs Initial Vital Signs: Vital Signs Temperature 98.2 F 04/06/24 14:36 Pulse Rate 98 H 04/06/24 14:36 Respiratory Rate 16 04/06/24 14:36 Blood Pressure 149/70 H 04/06/24 14:36 Pulse Oximetry 97 04/06/24 14:36 Oxygen Delivery Method Room Air 04/06/24 14:36 Const General: cooperative, comfortable and No ill appearing [facility] Head: normal to inspection and normocephalic Cardio Rate: regular rate Rhythm: regular rhythm GI Inspection: normal to inspection and non-distended Palpation: soft, No firm, No guarding and tender (Suprapubic region) Skin General: no rashes or lesions noted Neuro General: patient alert, patient awake and moves all extremities Extrem General: capillary refill normal Course Orders Ordered: ED Orders 04/06/24 14:43 EKG-12 Lead Stat 04/06/24 15:20 Urine Culture Stat Urine Microscopic Stat 04/06/24 15:24 Complete Blood Count AUTO DIFF Stat Comprehensive Metabolic Panel Stat Lipase Stat Prothrombin Time INR Stat 04/06/24 15:31 CT abdomen pelvis w con Stat Piperacillin Sod/Tazobactam (Sod 4.5 gm/ Sodium Chloride) 100 mls @ 200 mls/hr IV NOW ONE Stop: 04/06/24 19:04 Ondansetron HCl (Ondansetron 4 Mg/2 Ml Inj) 4 mg IV NOW PRN PRN Reason: Nausea And Vomiting Ondansetron HCl (Ondansetron 4 Mg Odt) 4 mg PO NOW PRN PRN Reason: Nausea And Vomiting Discontinued Medications Morphine Sulfate (Morphine 2 Mg/Ml Inj) 2 mg IV NOW ONE Stop: 04/06/24 15:31 Last Admin: 04/06/24 15:50 Dose: 2 mg Documented By: ARTEM Ondansetron HCl (Ondansetron 4 Mg/2 Ml Inj) 4 mg IV NOW ONE Stop: 04/06/24 15:31 Last Admin: 04/06/24 15:51 Dose: 4 mg Documented By: ARTEM Vital Signs Vital signs: Vital Signs - 8 hr 04/06/24 14:36 04/06/24 16:18 04/06/24 16:18 Temperature 98.2 F Pulse Rate 98 H 92 H Respiratory Rate 16 16 Blood Pressure 149/70 H 132/72 Pulse Oximetry 97 95 Oxygen Delivery Method Room Air Room Air 04/06/24 16:30 04/06/24 16:30 04/06/24 17:00 Temperature Pulse Rate 97 H 96 H Respiratory Rate Blood Pressure 138/65 Pulse Oximetry 95 Oxygen Delivery Method 04/06/24 17:00 04/06/24 17:10 04/06/24 17:10 Temperature Pulse Rate 97 H Respiratory Rate Blood Pressure 136/67 140/64 Pulse Oximetry 95 Oxygen Delivery Method 04/06/24 17:30 04/06/24 17:30 04/06/24 18:00 Temperature Pulse Rate 104 H 103 H Respiratory Rate 16 Blood Pressure 142/90 H Pulse Oximetry 95 95 Oxygen Delivery Method Room Air 04/06/24 18:00 Temperature Pulse Rate Respiratory Rate Blood Pressure 142/67 H Pulse Oximetry Oxygen Delivery Method Medical Decision Making Lab Data Lab results reviewed: Yes I reviewed the patient's lab results. 04/06/24 15:24 04/06/24 15:24 Labs: Lab Results 04/06/24 04/06/24 Range/Units 15:20 15:24 WBC 9.7 (4.5-11.0) X10^3/uL RBC 4.70 (4.0-5.2) X10^6/uL Hgb 14.2 (12.0-16.0) g/dL Hct 42.4 (36-46) % MCV 90.1 (80-100) fL MCH 30.3 (26-34) PG MCHC 33.6 (30-36) % RDW 12.8 (11.6-14.8) % Plt Count 246 (150-400) X10^3/uL Neut % (Auto) 66.0 (50-75) % Lymph % (Auto) 27.9 (25-40) % [place] % (Auto) 4.9 (3-14) % Eos % (Auto) 0.7 L (2-4) % Baso % (Auto) 0.5 (0-2) % Neut # (Auto) 6400 (4205-4557) /uL Lymph # (Auto) 2700 (2770-0800) /uL [place] # (Auto) 500 (0-900) /uL Eos # (Auto) 100 (0-450) /uL Baso # (Auto) 0 (0-100) /uL PT 10.5 (9.4-12.5) SECONDS INR 0.9 (0.9-1.3) Sodium 139 (137-145) mmol/L Potassium 3.6 (3.4-5.1) mmol/L Chloride 105 (98-107) mmol/L Carbon Dioxide 27 (22-32) mmol/L BUN 17 (7-17) mg/dL Creatinine 0.67 (0.52-1.04) mg/dL Estimated GFR > 60 (>60) mL/min BUN/Creatinine Ratio 25.4 H (6-22) Glucose 109 (80-110) mg/dL Calcium 9.8 (8.4-10.2) mg/dL Total Bilirubin 0.6 (0.2-1.3) mg/dL AST 29 (14-36) IU/L ALT 26 (<35) IU/L Alkaline Phosphatase 45 (38-126) U/L Total Protein 7.0 (6.3-8.2) g/dL Albumin 4.3 (3.5-5.0) g/dL Globulin 2.7 (1.7-4.1) g/dL Albumin/Globulin Ratio 1.6 (1.0-2.8) Lipase 117 (23-300) U/L Urine RBC None seen (0-5/HPF) Urine WBC 5-10/hpf H (0-5/HPF) Ur Squamous Epith Cells 5-10 /hpf H (0-5/HPF) Amorphous Sediment 2+ Urine Bacteria Many (>30) H (None) Ur Culture Indicated? Specimen cultured Vol Urine Centrifuged 10ml (spun) Urine Dip Bedside Urine Glucose Negative Bedside Urine Bilirubin - Negative Bedside Urine Ketone - Negative Urine Specific [place] 1.015 Bedside Urine Occult Blood +/- Bedside Urine pH 8.0 Bedside Urine Protein - Negative Bedside Urine Urobilinogen - Negative Bedside Urine Nitrite + Positive Bedside Urine Leukocytes +/- 15 Esterase Point of care testing: Urine Dip Bedside Urine Glucose Negative Bedside Urine Bilirubin - Negative Bedside Urine Ketone - Negative Urine Specific [place] 1.015 Bedside Urine Occult Blood +/- Bedside Urine pH 8.0 Bedside Urine Protein - Negative Bedside Urine Urobilinogen - Negative Bedside Urine Nitrite + Positive Bedside Urine Leukocytes +/- [address] scan - abdomen/pelvis: Radiologist's Impression: PROCEDURE: CT ABDOMEN PELVIS W CON INDICATIONS: Suprapubic abdominal pain TECHNIQUE: After the administration of intravenous contrast, axial sections acquired from the lung bases to the pubic symphysis. Coronal and sagittal reformats were performed. For radiation dose reduction, the following was used: automated exposure control, adjustment of mA and/or kV according to patient size. COMPARISON: None. FINDINGS: Image quality: Diagnostic. Lower Chest: No significant findings. ABDOMEN: Liver: No solid mass. Gallbladder: No radiopaque gallstones or wall thickening. Biliary ducts: No biliary dilation. Pancreas: No ductal dilation. Spleen: Size is within normal limits. Adrenal Glands: No adrenal nodules. Kidneys and Ureters: No hydronephrosis. No solid mass. No complex renal cystic lesion which requires follow up. Stomach and Bowel: There is a very large diverticulum off of the loop of jejunum which contains feculent material with extensive inflammatory change adjacent to this diverticulum. The diverticulum measures approximately 2.4 x 2.5 x 2.2 cm. Findings are consistent with acute diverticulitis. Alternatively, this may represent a perforated contained diverticulum with diverticulitis. There is very large diffuse fecal content. There is associated mild thickening of the wall of the transverse colon with enhancement of the wall. Extensive sigmoid diverticulosis is present without evidence of diverticulitis. Mildly prominent small bowel suggests ileus pattern. Appendix is normal in appearance. Peritoneum: Mild pelvic ascites. No free air. Ventral Wall: No significant ventral hernia. Abdominal Nodes: No retroperitoneal or mesenteric adenopathy by size criteria. Vessels: Aorta and inferior vena cava are normal in size. PELVIS: Pelvic Organs: Uterus is surgically absent. A pessary is in place.. Bladder: No bladder wall thickening, accounting for underdistention. Pelvic Nodes: No enlarged lymph nodes. Miscellaneous: No inguinal hernias are seen. Bones: No aggressive osseous abnormality. Lumbar degenerative change. Old mild to moderate T12 superior endplate compression. IMPRESSION: 1. There is either a very large jejunal diverticulum filled with fecal material or perforated jejunal diverticulitis. In either event, there is acute diverticulitis involving the jejunum. 2. Extensive sigmoid diverticulosis without evidence of diverticulitis. 3. Very large diffuse fecal load. There is associated mild transverse colonic wall thickening and enhancement and inflammatory change in the adjacent fat. 4. Mild pelvic ascites. ECG Data Attestation: I personally reviewed and interpreted this ECG as follows: Interpretation: Sinus rhythm Ventricular rate 94 Left axis deviation Normal QRS Normal QTC No ST T wave changes MDM Narrative Medical decision making narrative: Patient with a fairly sudden onset of abdominal discomfort. CT scan shows jejunal diverticulum with potential perforation. She was hemodynamically stable. Discussed the case with Dr. Mcknight who evaluated the patient here in the emergency department in will admit the patient to operating room for bowel resection. Zosyn ordered per his request. Discharge Plan Departure Patient Disposition: Admitted As Inpatient Clinical Impression: Perforated diverticulum of jejunum Prescriptions: No Action estradiol 0.01 % (0.1 mg/gram) cream See Rx Instructions .ROUTE .COMPLEX Qty: 42.5 11RF Dose Instruction: INSERT 1 GRAM VAGINALLY DAILY FOR 14 DAYS, THEN AT BEDTIME 3 NIGHTS EACH WEEK Rx Instructions: INSERT 1 GRAM VAGINALLY DAILY FOR 14 DAYS, THEN AT BEDTIME 3 NIGHTS EACH WEEK oxyquinoline-sod.lauryl sulfat 0.025-0.01 % gel 1 ea vaginal .1-2XW Qty: 226.8 2RF CHOLECALCIFEROL (VITAMIN D) See Rx Instructions PO BID Qty: 180 3RF Rx Instructions: 2000iu with Calcium 600mg orally twice a day; Centrum Silver 0.4 mg-300 mcg- 250 mcg tablet 1 tab PO DAILY Qty: 90 3RF Cranberry Supplement 500 mg PO .QD Qty: 90 3RF Calcium with Vitamin D 1 cap PO BID Qty: 180 3RF Rx Instructions: Take 600mg with Vitamin D3 2000iu by mouth twice daily. omega-3 acid ethyl esters [Lovaza] 1 gram capsule 1 cap PO BID Qty: 180 2RF PreserVision AREDS 2 Plus MV 200 mcg-15 mcg- 5 mg-1 mg capsule PO pravastatin 20 mg tablet 20 mg PO QPM Qty: 90 3RF Fish Oil (#FISH OIL) See Rx Instructions PO .COMPLEX Qty: 0 Rx Instructions: 1000mg capsule twice per day for elevated triglycerides orally; vitamin B complex Capsule PO Referrals: Blaise Wilcox MD [Primary Care Provider] - Admit Date/Time: 04/06/24 19:03 Admit Provider: Hernandez Mcknight
[2024-04-06 15:37] LABS: Add Manual Diff / Slide Review NO; Basophils Absolute Auto 0 /uL (0-100); Basophils Percent Auto 0.5 % (0-2); Eosinophils Absolute Auto 100 /uL (0-450); Eosinophils Percent Auto 0.7 % (2-4); Hematocrit 42.4 % (36-46); Hemoglobin 14.2 g/dL (12.0-16.0); Lymphocytes Absolute Auto 2700 /uL (1100-4500); Lymphocytes Percent Auto 27.9 % (25-40); Mean Corpuscular HGB Conc 33.6 % (30-36); Mean Corpuscular Hemoglobin 30.3 PG (26-34); Mean Corpuscular Volume 90.1 fL (80-100); Monocytes Absolute Auto 500 /uL (0-900); Monocytes Percent Auto 4.9 % (3-14); Neutrophils Absolute Auto 6400 /uL (1500-7000); Platelet Count 246 X10^3/uL (150-400); Red Cell Distribution Width 12.8 % (11.6-14.8); White Blood Cell Count 9.7 X10^3/uL (4.5-11.0)
[2024-04-06 15:41] LABS: INR 0.9 (0.9-1.3); Prothrombin Time 10.5 SECONDS (9.4-12.5)
[2024-04-06 15:50] LABS: Alanine Aminotransferase 26 IU/L (<35); Albumin 4.3 g/dL (3.5-5.0); Albumin Globulin Ratio 1.6 (1.0-2.8); Alkaline Phosphatase 45 U/L (38-126); Aspartate Aminotransferase 29 IU/L (14-36); BUN Creatinine Ratio 25.4 (6-22); Bilirubin Total 0.6 mg/dL (0.2-1.3); Blood Urea Nitrogen 17 mg/dL (7-17); Calcium 9.8 mg/dL (8.4-10.2); Carbon Dioxide 27 mmol/L (22-32); Chloride 105 mmol/L (98-107); Estimated Glomerular Filt Rate > 60 mL/min (>60); Globulin 2.7 g/dL (1.7-4.1); Glucose 109 mg/dL (80-110); HEMOLYSIS 15 (0-50); Lipase 117 U/L (23-300); Potassium 3.6 mmol/L (3.4-5.1); Sodium 139 mmol/L (137-145)
[2024-04-06] MEDS: MORPHINE 2 MG/ML INJ IV (15:50)
[2024-04-06] MEDS: ONDANSETRON 4 MG/2 ML INJ IV (15:51)
[2024-04-06 16:01] LABS: Amorphous Sediment Urine 2+; Bacteria Urine Many (>30); Culture Indicated Urine Specimen Cultured; RBC Urine None Seen (0-5/HPF); Squamous Epithelial Cell Urine 5-10 /HPF (0-5/HPF); Urine Volume 10mL (spun); WBC Urine 5-10/HPF (0-5/HPF)
--- NOTE | 2024-04-06 19:11 | P.HP_ITS ---
History of Present Illness History of Present Illness Date Patient Seen: 04/06/24 Time Patient Seen: 19:11 Chief complaint: abd px Narrative: Aquiles Vasquez is 78-year-old woman who presented to the emergency department today because of sudden onset of centralized abdominal pain around noon today. The has intensified throughout the day. She came to the ER and a CT scan demonstrated inflamed versus perforated jejunal diverticulitis. She has had no prior abdominal surgery. Her last meal was around 11 this morning. [facility] Medical History Osteopenia History of melanoma Menopausal syndrome Right temporomandibular joint disorder, unspecified Atrophic vaginitis Mixed hyperlipidemia Prolapse of vaginal vault after hysterectomy Vaginal erosion secondary to pessary use Post-menopausal atrophic vaginitis Hayfever Fractures Malignant melanoma of skin of chin Mumps Measles Chicken pox Hyperlipidemia Contusion of right upper arm (10/23/15) Nasal bone fracture Surgical History Anesthesia Status post wrist surgery (~2008) History of bladder suspension procedure (2009) Status post hysterectomy (1970) Family History Brother No problems noted. Father MVA (motor vehicle accident) Mother No problems noted. Grandfather No problems noted. Grandmother No problems noted. Grandfather No problems noted. Grandmother No problems noted. Sister No problems noted. Social History details: 1987, son and daughter, retired Smoking Status: Never smoker Meds Home Medications and Allergies Home Medications Medication Instructions Recorded Confirmed Type Fish Oil (#FISH OIL) See Rx Instructions PO .COMPLEX ##0 07/27/22 03/29/24 History estradiol 0.01% (0.1 mg/gram) See Rx Instructions .Route 11/23/23 03/29/24 Rx vaginal cream .COMPLEX #42.5 grams oxyquinoline 0.025 %-sodium lauryl 1 ea vaginal .1-2XW #226.8 grams 11/23/23 03/29/24 Rx sulfate 0.01 % vaginal gel CHOLECALCIFEROL (VITAMIN D) See Rx Instructions PO BID #180 02/22/24 03/29/24 Rx tabs Cranberry Supplement 500 mg PO .QD #90 caps 02/23/24 03/29/24 Rx afuanabz-wzr-pefzo acid 0.4 1 tab PO DAILY #90 tabs 02/23/24 03/29/24 Rx mg-lycopene 300 mcg-lutein 250 mcg tablet (Centrum Silver) Calcium with Vitamin D 1 cap PO BID #180 tabs 03/01/24 03/29/24 Rx vitamin B complex cap PO 03/14/24 03/29/24 History omega-3 acid ethyl esters 1 gram 1 cap PO BID #180 caps 03/23/24 03/29/24 Rx capsule (Lovaza) mv-mn-folic 200 mcg-vit K 15 cap PO 03/29/24 03/29/24 History mcg-lutein 5 mg-zeaxanthin 1 mg capsule (PreserVision AREDS 2 Plus Multivit) pravastatin 20 mg tablet 20 mg PO QPM #90 tabs 03/29/24 03/29/24 Rx Allergies Allergy/AdvReac Type Severity Reaction Status Date / Time propoxyphene [From DARVON] Allergy Unknown Verified 04/06/24 14:42 Exam Vital Signs (past 8 hours): - 04/06/24 14:36 04/06/24 16:18 04/06/24 16:18 Temperature 98.2 F Pulse Rate 98 H 92 H Respiratory Rate 16 16 Blood Pressure 149/70 H 132/72 Pulse Oximetry 97 95 Oxygen Delivery Method Room Air Room Air 04/06/24 16:30 04/06/24 16:30 04/06/24 17:00 Temperature Pulse Rate 97 H 96 H Respiratory Rate Blood Pressure 138/65 Pulse Oximetry 95 Oxygen Delivery Method 04/06/24 17:00 04/06/24 17:10 04/06/24 17:10 Temperature Pulse Rate 97 H Respiratory Rate Blood Pressure 136/67 140/64 Pulse Oximetry 95 Oxygen Delivery Method 04/06/24 17:30 04/06/24 17:30 04/06/24 18:00 Temperature Pulse Rate 104 H 103 H Respiratory Rate 16 Blood Pressure 142/90 H Pulse Oximetry 95 95 Oxygen Delivery Method Room Air 04/06/24 18:00 Temperature Pulse Rate Respiratory Rate Blood Pressure 142/67 H Pulse Oximetry Oxygen Delivery Method Oxygen Delivery Method Room Air Narrative Exam Narrative: Tender to palpation just inferior to the umbilicus No devin peritonitis Objective Labs 04/06/24 15:24 04/06/24 15:24 Labs: Laboratory Results - last 24 hr 04/06/24 04/06/24 15:20 15:24 WBC 9.7 RBC 4.70 Hgb 14.2 Hct 42.4 MCV 90.1 MCH 30.3 MCHC 33.6 RDW 12.8 Plt Count 246 Neut % (Auto) 66.0 Lymph % (Auto) 27.9 [place] % (Auto) 4.9 Eos % (Auto) 0.7 L Baso % (Auto) 0.5 Neut # (Auto) 6400 Lymph # (Auto) 2700 [place] # (Auto) 500 Eos # (Auto) 100 Baso # (Auto) 0 PT 10.5 INR 0.9 Sodium 139 Potassium 3.6 Chloride 105 Carbon Dioxide 27 BUN 17 Creatinine 0.67 Estimated GFR > 60 BUN/Creatinine Ratio 25.4 H Glucose 109 Calcium 9.8 Total Bilirubin 0.6 AST 29 ALT 26 Alkaline Phosphatase 45 Total Protein 7.0 Albumin 4.3 Globulin 2.7 Albumin/Globulin Ratio 1.6 Lipase 117 Urine RBC None seen Urine WBC 5-10/hpf H Ur Squamous Epith Cells 5-10 /hpf H Amorphous Sediment 2+ Urine Bacteria Many (>30) H Ur Culture Indicated? Specimen cultured Vol Urine Centrifuged 10ml (spun) Assessment & Plan Assessment and plan (1) Perforated diverticulum of jejunum: Status: Acute Plan 78-year-old woman with apparent perforation of a jejunal diverticulum with sudden onset of abdominal pain aproximally 7 hours ago. I explained the CT scan findings to her and her sister who is an RN. I recommended exploratory laparotomy and a small-bowel resection. She would like to proceed. Start Jake. Time-Based Coding :: [TOTAL MINUTES] spent with patient and on the chart (including review of chart, obtaining history, exam, reviewing outside data, placing orders, documenting exam and treatment plan, and counseling patient) on [DATE].
[2024-04-06] MEDS: PIPERACILLIN/TAZO 4.5 GM in SODIUM CHLORIDE 0.9% 100 ML IV (19:17)
[2024-04-06] MEDS: LACTATED RINGERS 1,000 ML 42 ML IV ×2 (20:00→21:52)
--- NOTE | 2024-04-06 20:24 | SUR.OPER ---
Supine on padded OR bed, head on pillow, arms secured on padded arm boards at <90 degrees abduction, legs uncrossed, safety belt at thigh, tape over blanket over lower legs.
[2024-04-06] MEDS: BUPIVACAINE LIPOSOME 266 MG/20 ML VIAL INJ (21:18)
[2024-04-06] MEDS: BUPIVACAINE 0.25% (PF) VIAL 30 ML INJ (21:19)
--- NOTE | 2024-04-06 21:40 | PM.OP.1 ---
Operative Date/Time/Diagnoses Date of procedure: 04/06/24 Time of procedure: 21:40 Pre-op diagnosis: Perforated viscus Post-op diagnosis: other (Perforated jejunal diverticulum) Procedure & Clinicians Procedure: Exploratory laparotomy Small-bowel resection with primary anastomosis Same procedure as scheduled: Yes Surgeon: Hernandez Mcknight Anesthesia Type: General Operative Notes Procedure in detail: The patient is a 78-year-old woman who presented with a perforated jejunal diverticulum. She was consented for exploratory laparotomy and small-bowel resection. She had received Zosyn in the emergency room. The patient was brought to the operating room, placed on the table in the supine position and general endotracheal anesthesia was induced. We made a low midline incision extending from the pubis to a few fingerbreadths above the umbilicus. We dissected down to the anterior sheath and divided the anterior sheath with cautery. We grasped the posterior sheath between clamps and divided it sharply. The abdomen was entered atraumatically. An Herman wound retractor was placed into the wound. The abdomen was explored. There was jejunal diverticulum approximately 10 cm from the ligament of Treitz. Was murky fluid throughout the abdomen consistent with a microperforation. We performed a small-bowel resection to remove the duodenal diverticulum. We used the 75 mm linear cutting stapler with blue loads to perform the [id number] functional end-to-end anastomosis. The staple line was imbricated with multiple interrupted 3-0 silk sutures. The mesenteric defect was closed with a running 0 Vicryl stitch. We irrigated the abdomen with 1 L of warm saline. We then injected Exparel into the fascia and closed with a running 0 PDS reinforced with 2 interrupted 0 Vicryl internal retention sutures. We closed the skin with néstor. Sterile dressings were applied. EBL: 30 mL Specimen: Segment of jejunum including perforated jejunal diverticulum Post-operative Condition: stable Disposition: PACU
[2024-04-06] MEDS: ACETAMINOPHEN IV 1,000 MG/100 ML VIAL 400 MG IV (21:49)
[2024-04-06] MEDS: HYDROMORPHONE 1 MG INJ IV (22:03)
[2024-04-06] MEDS: hydrOXYzine 50 MG/ML INJ 25 MG IM (22:04)
[2024-04-06] MEDS: PIPERACILLIN/TAZO 3.375 GM in SODIUM CHLORIDE 0.9% 100 ML IV (23:21)
[2024-04-06] MEDS: LACTATED RINGERS 1,000 ML 80 ML IV (23:29)
[2024-04-07] VITALS (8 sets, daily range): BP systolic 93–117; BP diastolic 52–63; PULSE 77–91; RESP 17–18; TEMP 36.7–37.2; O2SAT 91–95
[2024-04-07] MEDS: PIPERACILLIN/TAZO 3.375 GM in SODIUM CHLORIDE 0.9% 100 ML IV ×3 (05:58→22:50)
[2024-04-07 07:12] LABS: Add Manual Diff / Slide Review NO; Basophils Absolute Auto 0 /uL (0-100); Basophils Percent Auto 0.2 % (0-2); Eosinophils Absolute Auto 0 /uL (0-450); Hematocrit 36.7 % (36-46); Hemoglobin 12.2 g/dL (12.0-16.0); Lymphocytes Absolute Auto 1100 /uL (1100-4500); Lymphocytes Percent Auto 9.6 % (25-40); Mean Corpuscular HGB Conc 33.4 % (30-36); Mean Corpuscular Hemoglobin 30.2 PG (26-34); Mean Corpuscular Volume 90.6 fL (80-100); Monocytes Absolute Auto 600 /uL (0-900); Monocytes Percent Auto 5.4 % (3-14); Neutrophils Absolute Auto 9800 /uL (1500-7000); Neutrophils Percent Auto 84.8 % (50-75); Platelet Count 206 X10^3/uL (150-400); Red Blood Cell Count 4.05 X10^6/uL (4.0-5.2); White Blood Cell Count 11.6 X10^3/uL (4.5-11.0)
[2024-04-07 07:26] LABS: Blood Urea Nitrogen 16 mg/dL (7-17); Calcium 8.4 mg/dL (8.4-10.2); Carbon Dioxide 23 mmol/L (22-32); Chloride 106 mmol/L (98-107); Estimated Glomerular Filt Rate > 60 mL/min (>60); Glucose 163 mg/dL (80-110); HEMOLYSIS < 15 (0-50); Sodium 137 mmol/L (137-145)
[2024-04-07] MEDS: IBUPROFEN 600 MG TABLET PO (09:11)
[2024-04-07] MEDS: ACETAMINOPHEN 325 MG TABLET 650 MG PO (09:12)
--- NOTE | 2024-04-07 10:03 | P.PN_ITS ---
Subjective Subjective Date Patient Seen: 04/07/24 Time Patient Seen: 10:03 Interval history: Tolerating clears. No return of bowel function yet. Exam Vital Signs (past 8 hours): - 04/07/24 03:00 Temperature 98.3 F Pulse Rate 87 Respiratory Rate 18 Blood Pressure 100/56 L Pulse Oximetry 93 Oxygen Flow Rate 2 Fraction of Inspired Oxygen 28 SaO2/FiO2 Ratio 335 Oxygen Delivery Method Nasal Cannula Oxygen Flow Rate 2 Narrative Exam Narrative: General elderly woman alert oriented no acute distress Abdomen soft appropriately tender to palpation. Midline dressing clean dry intact. Objective Labs 04/07/24 06:55 04/07/24 06:55 Labs: Laboratory Results - last 24 hr 04/06/24 04/06/24 04/07/24 15:20 15:24 06:55 WBC 9.7 11.6 H RBC 4.70 4.05 Hgb 14.2 12.2 Hct 42.4 36.7 MCV 90.1 90.6 MCH 30.3 30.2 MCHC 33.6 33.4 RDW 12.8 13.0 Plt Count 246 206 Neut % (Auto) 66.0 84.8 H Lymph % (Auto) 27.9 9.6 L [place] % (Auto) 4.9 5.4 Eos % (Auto) 0.7 L 0.0 L Baso % (Auto) 0.5 0.2 Neut # (Auto) 6400 9800 H Lymph # (Auto) 2700 1100 [place] # (Auto) 500 600 Eos # (Auto) 100 0 Baso # (Auto) 0 0 PT 10.5 INR 0.9 Sodium 139 137 Potassium 3.6 4.0 Chloride 105 106 Carbon Dioxide 27 23 BUN 17 16 Creatinine 0.67 0.80 Estimated GFR > 60 > 60 BUN/Creatinine Ratio 25.4 H 20.0 Glucose 109 163 H Calcium 9.8 8.4 Total Bilirubin 0.6 AST 29 ALT 26 Alkaline Phosphatase 45 Total Protein 7.0 Albumin 4.3 Globulin 2.7 Albumin/Globulin Ratio 1.6 Lipase 117 Urine RBC None seen Urine WBC 5-10/hpf H Ur Squamous Epith Cells 5-10 /hpf H Amorphous Sediment 2+ Urine Bacteria Many (>30) H Ur Culture Indicated? Specimen cultured Vol Urine Centrifuged 10ml (spun) PFSH Medical History Osteopenia History of melanoma Menopausal syndrome Right temporomandibular joint disorder, unspecified Atrophic vaginitis Mixed hyperlipidemia Prolapse of vaginal vault after hysterectomy Vaginal erosion secondary to pessary use Post-menopausal atrophic vaginitis Hayfever Fractures Malignant melanoma of skin of chin Mumps Measles Chicken pox Hyperlipidemia Contusion of right upper arm (10/23/15) Nasal bone fracture Surgical History Anesthesia Status post wrist surgery (~2008) History of bladder suspension procedure (2009) Status post hysterectomy (1970) Family History Brother No problems noted. Father MVA (motor vehicle accident) Mother No problems noted. Grandfather No problems noted. Grandmother No problems noted. Grandfather No problems noted. Grandmother No problems noted. Sister No problems noted. Social History details: 1987, son and daughter, retired household members: none Smoking Status: Never smoker alcohol intake: never Assessment & Plan Post-op Postoperative Procedures: Procedures Operation Date: 04/06/24 20:00 Actual Procedure Side Surgeon p Exploratory Laparotomy Not Applicable Hernandez Mcknight MD Postoperative status narrative: -continue liquid diet until return of bowel function. -continue Zosyn for intra-abdominal infection Quality VTE Deep Vein Thrombosis/Pulmonary Embolism Present on Admission: No
--- NOTE | 2024-04-07 10:57 | CM.DANOTE ---
Addendum entered by USMAN Martin 04/08/24 12:51: ADD: Cleared by therapy for home w/family. Close outpatient follow up anticipated. Original Note: Initial DCP Assessment Note Pt is a 78 yo female, resident of [place], now POD#1 from ex lap, small bowell resection for Perforated jejunal diverticulum with Dr Mcknight. PCP: Blaise Wilcox Payer: [facility]/Commercial Reviewed chart, met w/patient to introduce self and role. Patient lives alone and independently in [place]. Patient explains that when she had taken care of her mom, she had her home remodeled in order to be wheelchair accessible for her mom. Patient fx her ankle within the last year and was able to recover at home. Patient denies hx of HH or SNF. Patient reports that her sister is a retired ER nurse and feels confident she will have enough assist once home. No barriers identified at this time to patient's safe discharge home w/family to assist; close outpatient f/u recommended. CM team will plan to follow clinical course closely in case any DC needs or concerns arise. USMAN Hernández Discharge Planning/Care Management CM Discharge Assessment Start: 04/07/24 10:53 Freq: Status: Active Protocol: Document 04/07/24 10:53 JAYE (Rec: 04/07/24 10:57 JAYE [id number]) Discharge Planning Assessment Assigned Logistics Account Manager USMAN Landon DPOA/Assigned Designee Name sister Bland Contact Information [phone], Advance Directives? Yes: Health Care Directive Advance Directives on File Yes History Provided By Patient,Medical Record Prior Living Arrangements House Household Members none Type of transporation used prior to Drives own vehicle admit Independent with ADL's Yes Is patient alert and oriented? Yes Barriers to Discharge No Discharge Plan Home Transportation Arrangement Family Referrals Initiated None needed
--- NOTE | 2024-04-07 15:50 | PT.IIE ---
Current Diagnoses Diverticulitis of small intestine with perforation and abscess without bleeding (04/06/24) Surgery Performed Operation Date: 04/06/24 20:00 Actual Procedures p Exploratory Laparotomy(Not Applicable) - Hernandez Mcknight MD Surgical History (Last Reviewed 03/29/24 @ 06:37 by Blaise Wilcox MD) Anesthesia History of bladder suspension procedure (2009) Status post hysterectomy (1970) Status post wrist surgery (~2008) Medical History (Last Reviewed 04/06/24 @ 15:40 by Winston Alonzo DO) Atrophic vaginitis Chicken pox Contusion of right upper arm (10/23/15) Fractures Hayfever History of melanoma Hyperlipidemia Malignant melanoma of skin of chin Measles Menopausal syndrome Mixed hyperlipidemia Mumps Nasal bone fracture Osteopenia Post-menopausal atrophic vaginitis 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, unspecified Vaginal erosion secondary to pessary use Physical Therapy Inpatient Evaluation/Re-Eval M1 PT/OT-IP Prior Functional Status Start: 04/07/24 16:54 Freq: NEEDED Status: Active Protocol: Document 04/07/24 15:50 AB (Rec: 04/07/24 17:09 AB [id number]) Medical Review Prior Functional Status Medical History Reviewed Yes Communication able to make needs known Mobility and Gait pt stated that she was independent with all mobilities and ambulation without AD; pt stated that she keeps herself busy and active by volunteering Social History Household Members none Living Arrangements House Number of Floors (Floors) One Floor Number of Stairs To Enter/Railing? no steps to enter the house Home Environment Standard Height Toilet,Walk in Shower Home Equipment Front Wheel Walker,Shower Seat with Backrest,Hand Held Shower,Grab Bars Near Toilet, Grab Bars In Shower Additional Social History Comment pt's sister will assist pt and can stay with pt if needed pt's son also will be able to assist M2 PT-IP Current Condition Start: 04/07/24 16:54 Freq: NEEDED Status: Active Protocol: Document 04/07/24 15:50 AB (Rec: 04/07/24 17:09 AB [id number]) Physical Therapy Current Condition Current Condition Evaluation Date 04/07/24 Treatment Diagnosis s/p ex-lap and small bowel resection; difficulty in walking Onset Date 08/15/24 M3 PT-IP Subjective Start: 08/16/24 16:54 Freq: NEEDED Status: Active Protocol: Document 04/07/24 15:50 AB (Rec: 04/07/24 17:09 AB [id number]) Subjective Physical Therapy Visit Type Type Initial Evaluation Visit Start Time 15:50 Visit Stop Time 16:25 Number of JEWELRY CASTING MODEL MAKER APPRENTICE Visits 0 Physical Therapy Visit Comments Patient Comments agreeable to do PT Therapy Pain Assessment Pain When Pain Assessed At Rest Pain Present Pain Present Pain Reported Location Abdomen Intensity 2 Scale Used increases with movement Pain Management Techniques Distraction,Modification of Treatment,Re-positioning, Timing of Activity with Medications M4 PT-IP Mobility and Gait Start: 04/07/24 16:54 Freq: NEEDED Status: Active Protocol: Document 04/07/24 15:50 AB (Rec: 04/07/24 17:09 AB [id number]) PT-Bed Mobility Assessment Rolling Type of Rolling Log Rolling Level of Assist Minimal Assistance,Moderate Assistance Supine to Sit Supine to Sit Moderate Assistance,Maximum Assistance Sit to Supine Sit to Supine Minimal Assistance PT-Transfer Assessment Sit to and From Stand Sit to and from Stand Standby Assistance,Contact Guard Assistance,1 Person Assistance,Use of Upper Extremities Equipment Transfer Assistive Device Gait Belt,Front Wheeled Walker Orthotic/Prosthetic Devices or Brace: No Transfers Transfer Destination Toilet Transfer Technique ambulated Transfer Ability Level of Assist Standby Assistance,Contact Guard Assistance,1 Person Assistance,Use of Upper Extremities Comments Mobility Comments pt supine in bed and agreeable to do PT. pt's sister in room with pt. obtained PLOF and home set up from pt. educated pt regarding abdominal precautions and log roll bed mobility. post-op handout provided to pt. Bp supine: 112 /78 O2 sat at RA 93-94%. pt completed supine to sit log roll max A and max cues. required 2 attempts to complete. no c/o dizziness. O2 sat RA 95%. pt requesting to use the toilet. completed sit to stand CGA and ambulated to the toilet using FWW CGA. presents with decrease LE elevation and step length with ambulation. completed toileting SBA. sit to stand from the toilet using grab bar CGA. ambulated towards the sink using FWW CGA and was able to maintain standing SBA to CGA while completing handwashing. pt ambulated to the chair using FWW CGA. pt wanting to practice log roll bed mobility. step transfer to bed SBA using fWW. completed sit to supine min A and max cues for techniques. completed supine to sit mod A and max cues. pt completed step transfer to chair using FWW SBA. positioned pt on the chair. call light and table placed within reach. Gait Assessment Gait Gait Assistance Required: Contact Guard Assist Distance (Feet) 40 Able to Maintain Weight Bearing Status Yes During Gait Assistive Devices Assistive Device Gait Belt,Front Wheeled Walker Orthotic/Prosthetic Devices or Brace: No Gait Deviations General Gait Pattern Decreased Stride Length, Decreased Feet Clearance Factors Limiting Gait Function Factors Limiting Gait Function Decreased Activity Tolerance, Decreased Strength,Limited Range of Motion,Pain,Poor Balance,Poor Safety Awareness PT-Balance Assessment Sitting Balance and Reactions Static Sitting Balance Ability Normal Dynamic Sitting Balance Ability Good Standing Balance and Reactions Static Standing Balance Ability Fair Dynamic Standing Balance Ability Fair Device Used FWW M5 PT-IP Objective Assessments Start: 04/07/24 16:54 Freq: NEEDED Status: Active Protocol: Document 04/07/24 15:50 AB (Rec: 04/07/24 17:09 AB [id number]) Orientation Orientation/Cognition Level of Alertness Alert Orientation Name,Place,Situation Language Function Ability No Deficits Noted Safety Awareness Decreased Safety Awareness Memory Description No Deficits Noted Gross Range of Motion Lower Extremity ROM Assessment Within Functional Limits Strength Lower Extremity Strength Assessment Within Functional Limits Coordination Assessment Gross Coordination Gross Coordination WNL Sensation Assessment Sensation Gross Sensation WNL Muscle Tone Muscle Tone WNL Yes M6 PT-IP Treatment Start: 04/07/24 16:54 Freq: NEEDED Status: Active Protocol: Document 04/07/24 15:50 AB (Rec: 04/07/24 17:09 AB [id number]) Physical Therapy Treatment Education Education Provided Precautions,Post-Op Packet, Safety M7 PT-IP Assessment and Plan Start: 04/07/24 16:54 Freq: NEEDED Status: Active Protocol: Document 04/07/24 15:50 AB (Rec: 04/07/24 17:09 AB [id number]) PT Summary Assessment and Plan Potential Rehabilitation Potential Good Status of Condition at Evaluation Stable Summary Impairments Pain,ROM,Strength,Balance, Coordination,Sensation,Tone, Cognition,Bed Mobility, Transfers,Gait,Activity Tolerance Assessment Summary pt is a 78 y/o F with c/o abdominal pain and found to have perforated jejunal diverticulitis. pt underwent ex-lap with small bowel resection. pt with abdominal precautions. pt requiring mod to max A with supine to sit and min A for sit to supine log roll and cues for techniques. CGA with mobility using FWW. pt will likely progress with mobility during hospital stay. pt plans to go home and will have family to assist her as needed. will continue to assess progress. Goals Bed Mobility Goal Independent Transfer Goal Independent,Front Wheeled Walker Gait Goal Independent,Front Wheel Walker Gait Distance 300 Other Goals improve transfers and ambulation without AD ~ 300 ft mod I Days to Meet Goals 10 Frequency of Treatment Frequency Of Treatment Once a Day Treatment Plan Physical Therapy Treatment Plan Bed Mobility Training,Transfer Training,Gait Training, Therapeutic Exercise,Balance Retraining,Post Op Education, Discharge Planning,Hot or Cold Pack,Neuromuscular Re-ed, Coordination Retraining,Manual Therapy Other Recommendations and Next Treatment bed mobility, ambulation Focus Precautions Abdominal Surgery Precautions Log Roll,Lifting Restrictions, Gait Belt above Incisional Area Recommendations To Nursing Amount of Assist Needed 1 Person Assist Discharge Recommendations PT Discharge Recommendations Home with Assistance Transportation Needs at Discharge Private Vehicle
[2024-04-08 01:40] VITALS: BP 117/63; PULSE 86; RESP 18; TEMP 36.9; O2SAT 92
[2024-04-08] MEDS: PIPERACILLIN/TAZO 3.375 GM in SODIUM CHLORIDE 0.9% 100 ML IV (06:35)
[2024-04-08] MEDS: ENOXAPARIN 40 MG/0.4 ML SYRINGE SUBCUT (09:51)
[2024-04-08] MEDS: ACETAMINOPHEN 325 MG TABLET 650 MG PO (09:51)
[2024-04-08] MEDS: IBUPROFEN 600 MG TABLET PO ×2 (09:52→21:12)
[2024-04-08] MEDS: SODIUM CHLORIDE 0.9% FLUSH 10 ML IV ×2 (09:53→21:12)
--- NOTE | 2024-04-08 10:13 | PM.PN.1 ---
Subjective Subjective Date Patient Seen: 04/08/24 Time Patient Seen: 10:13 Interval history: Feeling well today Tolerating clears Passing gas Exam Vital Signs (past 8 hours): Fraction of Inspired Oxygen 28 SaO2/FiO2 Ratio 335 Oxygen Delivery Method Room Air Oxygen Flow Rate 0 Narrative Exam Narrative: Abdomen is soft Incision clean dry and intact Objective Labs 04/07/24 06:55 04/07/24 06:55 PFS Medical History Osteopenia History of melanoma Menopausal syndrome Right temporomandibular joint disorder, unspecified Atrophic vaginitis Mixed hyperlipidemia Prolapse of vaginal vault after hysterectomy Vaginal erosion secondary to pessary use Post-menopausal atrophic vaginitis Hayfever Fractures Malignant melanoma of skin of chin Mumps Measles Chicken pox Hyperlipidemia Contusion of right upper arm (10/23/15) Nasal bone fracture Surgical History Anesthesia Status post wrist surgery (~2008) History of bladder suspension procedure (2009) Status post hysterectomy (1970) Family History Brother No problems noted. Father MVA (motor vehicle accident) Mother No problems noted. Grandfather No problems noted. Grandmother No problems noted. Grandfather No problems noted. Grandmother No problems noted. Sister No problems noted. Social History details: 1987, son and daughter, retired household members: none Smoking Status: Never smoker alcohol intake: never Assessment & Plan Assessment and plan (1) Perforated diverticulum of jejunum: Status: Acute Plan Advance diet to regular today Time-Based Coding :: [TOTAL MINUTES] spent with patient and on the chart (including review of chart, obtaining history, exam, reviewing outside data, placing orders, documenting exam and treatment plan, and counseling patient) on [DATE]. Quality VTE Deep Vein Thrombosis/Pulmonary Embolism Present on Admission: No
--- NOTE | 2024-04-08 11:00 | PT.IPTN ---
Current Diagnoses Diverticulitis of small intestine with perforation and abscess without bleeding (04/06/24) Surgery Performed Operation Date: 04/06/24 20:00 Actual Procedures p Exploratory Laparotomy(Not Applicable) - Hernandez Mcknight MD Physical Therapy Treatment Note M2 PT-IP Current Condition Start: 04/07/24 16:54 Freq: NEEDED Status: Active Protocol: Document 04/07/24 15:50 AB (Rec: 04/07/24 17:09 AB [id number]) Physical Therapy Current Condition Current Condition Evaluation Date 04/07/24 Treatment Diagnosis s/p ex-lap and small bowel resection; difficulty in walking Onset Date 04/06/24 M3 PT-IP Subjective Start: 04/07/24 16:54 Freq: NEEDED Status: Active Protocol: Document 04/08/24 11:00 AB (Rec: 04/08/24 13:09 AB [id number]) Subjective Physical Therapy Visit Type Type Treatment Note Visit Start Time 11:00 Visit Stop Time 11:25 Number of BODY DESIGNER Visits 0 Physical Therapy Visit Comments Patient Comments agreeable to do PT Therapy Pain Assessment Pain When Pain Assessed At Rest Pain Present Pain Present Pain Reported Location Abdomen Intensity 6 Scale Used Numeric (0 - 10) Pain Behaviors Guarding,Holding Area Pain Management Techniques Distraction,Modification of Treatment,Re-positioning, Timing of Activity with Medications M4 PT-IP Mobility and Gait Start: 04/07/24 16:54 Freq: NEEDED Status: Active Protocol: Document 04/08/24 11:00 AB (Rec: 04/08/24 13:09 AB [id number]) PT-Bed Mobility Assessment Rolling Type of Rolling Log Rolling Level of Assist Minimal Assistance,Moderate Assistance Supine to Sit Supine to Sit Minimal Assistance,Moderate Assistance Sit to Supine Sit to Supine Minimal Assistance,Moderate Assistance PT-Transfer Assessment Sit to and From Stand Sit to and from Stand Standby Assistance,1 Person Assistance,Use of Upper Extremities Equipment Transfer Assistive Device None,Gait Belt Orthotic/Prosthetic Devices or Brace: No Transfers Transfer Destination Bed Transfer Technique ambulated Transfer Ability Level of Assist Standby Assistance,1 Person Assistance,Use of Upper Extremities Comments Mobility Comments pt sitting on the chair and agreeable to do PT. pt's sister in room with pt. pt completed sit to stand SBA and ambulated in the hallway without AD SBA ~ 100 ft. presents with antalgic gait but without LOB. pt sat on EOB. bed mobility training conducted. pt completed log roll sit<>supine min A to mod A and max cues for techniques. pt having more pain today compared to yesterday affecting mobility. pt stated that the doctor just took her dressing off her this morning . pt refused further activities. pt ambulated back to her chair SBA. positioned pt on the chair. Left pt with sister in room. Gait Assessment Gait Gait Assistance Required: Standby Assistance Distance (Feet) 100 Able to Maintain Weight Bearing Status Yes During Gait Assistive Devices Assistive Device None,Gait Belt Orthotic/Prosthetic Devices or Brace: No Gait Deviations General Gait Pattern Antalgic,Decreased Stride Length,Decreased Feet Clearance Factors Limiting Gait Function Factors Limiting Gait Function Decreased Activity Tolerance, Decreased Strength,Limited Range of Motion,Pain,Poor Balance,Poor Safety Awareness M5 PT-IP Objective Assessments Start: 04/07/24 16:54 Freq: NEEDED Status: Active Protocol: Document 04/07/24 15:50 AB (Rec: 04/07/24 17:09 AB [id number]) Orientation Orientation/Cognition Level of Alertness Alert Orientation Name,Place,Situation Language Function Ability No Deficits Noted Safety Awareness Decreased Safety Awareness Memory Description No Deficits Noted Gross Range of Motion Lower Extremity ROM Assessment Within Functional Limits Strength Lower Extremity Strength Assessment Within Functional Limits Coordination Assessment Gross Coordination Gross Coordination WNL Sensation Assessment Sensation Gross Sensation WNL Muscle Tone Muscle Tone WNL Yes M6 PT-IP Treatment Start: 04/07/24 16:54 Freq: NEEDED Status: Active Protocol: Document 04/08/24 11:00 AB (Rec: 04/08/24 13:09 AB [id number]) Physical Therapy Treatment Education Education Provided Precautions,Safety M7 PT-IP Assessment and Plan Start: 04/07/24 16:54 Freq: NEEDED Status: Active Protocol: Document 04/08/24 11:00 AB (Rec: 04/08/24 13:09 AB [id number]) PT Summary Assessment and Plan Potential Rehabilitation Potential Good Summary Impairments Pain,ROM,Strength,Balance, Coordination,Sensation,Tone, Cognition,Bed Mobility, Transfers,Gait,Activity Tolerance Progress Towards Goals Slow Progress due to Pain Assessment Summary pt improving slowly with mobility and able to ambulate withouse AD SBA but requires min to mod A for log roll bed mobility. c/o increase pain with movement affecting progress. pt stated that her sister will stay with her for a few days to assist. will continue to assess progress. Goals Bed Mobility Goal Independent Transfer Goal Independent,Front Wheeled Walker Gait Goal Independent,Front Wheel Walker Gait Distance 300 Other Goals improve transfers and ambulation without AD ~ 300 ft mod I Days to Meet Goals 10 Frequency of Treatment Frequency Of Treatment Once a Day Treatment Plan Physical Therapy Treatment Plan Bed Mobility Training,Transfer Training,Gait Training, Therapeutic Exercise,Balance Retraining,Post Op Education, Discharge Planning,Hot or Cold Pack,Neuromuscular Re-ed, Coordination Retraining,Manual Therapy Other Recommendations and Next Treatment bed mobility Focus Precautions Abdominal Surgery Precautions Log Roll,Lifting Restrictions, Gait Belt above Incisional Area Recommendations To Nursing Amount of Assist Needed 1 Person Assist Discharge Recommendations PT Discharge Recommendations Home with Assistance Transportation Needs at Discharge Private Vehicle
[2024-04-08 14:00] VITALS: BP 115/74; PULSE 78; RESP 18; TEMP 36.2; O2SAT 93
[2024-04-08 20:00] VITALS: O2SAT 94
[2024-04-08 21:30] VITALS: BP 110/68; PULSE 89; RESP 19; TEMP 36.4; O2SAT 93
[2024-04-09 06:24] VITALS: BP 121/68; PULSE 74; RESP 19; TEMP 36.2; O2SAT 94
[2024-04-09 07:00] VITALS: O2SAT 94
[2024-04-09] MEDS: ENOXAPARIN 40 MG/0.4 ML SYRINGE SUBCUT (08:27)
[2024-04-09] MEDS: SODIUM CHLORIDE 0.9% FLUSH 10 ML IV (08:28)
--- NOTE | 2024-04-09 09:59 | P.DS_ITS ---
History of Present Illness History of Present Illness Chief complaint: abd px Narrative: Aquiles Vasquez is 78-year-old woman who presented to the emergency department today because of sudden onset of centralized abdominal pain around noon today. The has intensified throughout the day. She came to the ER and a CT scan demonstrated inflamed versus perforated jejunal diverticulitis. She has had no prior abdominal surgery. Her last meal was around 11 this morning. Discharge Providers Provider Date of admission: 04/06/24 19:03 Discharge Date: 04/09/24 Primary care physician: Blaise Wilcox MD Consults: 04/07/24 10:05 Consult to Physical Therapy Evaluate & Treat Comment: Physician Instructions: Evaluate and Treat Discharge provider: Hernandez Mcknight MD Summary Hospital Course Discharge Diagnosis: Perforated jejunal diverticulitis Hospital Course: Patient underwent a small-bowel resection for perforated jejunal diverticulitis. She did well after surgery and her diet was advanced. Once she was tolerating regular diet she was discharged home. Exam Vital Signs (past 8 hours): - 04/09/24 06:24 04/09/24 07:00 Temperature 97.2 F L Pulse Rate 74 Respiratory Rate 19 Blood Pressure 121/68 Pulse Oximetry 94 94 Oxygen Delivery Method Room Air Oxygen Flow Rate 0 0 Fraction of Inspired Oxygen 28 SaO2/FiO2 Ratio 335 Oxygen Delivery Method Room Air Oxygen Flow Rate 0 Objective Labs 04/07/24 06:55 04/07/24 06:55 [facility] Medical History Osteopenia History of melanoma Menopausal syndrome Right temporomandibular joint disorder, unspecified Atrophic vaginitis Mixed hyperlipidemia Prolapse of vaginal vault after hysterectomy Vaginal erosion secondary to pessary use Post-menopausal atrophic vaginitis Hayfever Fractures Malignant melanoma of skin of chin Mumps Measles Chicken pox Hyperlipidemia Contusion of right upper arm (10/23/15) Nasal bone fracture Surgical History Anesthesia Status post wrist surgery (~2008) History of bladder suspension procedure (2009) Status post hysterectomy (1970) Family History Brother No problems noted. Father MVA (motor vehicle accident) Mother No problems noted. Grandfather No problems noted. Grandmother No problems noted. Grandfather No problems noted. Grandmother No problems noted. Sister No problems noted. Social History details: 1988, son and daughter, retired household members: none Smoking Status: Never smoker alcohol intake: never Discharge Plan Discharge Plan Patient Disposition: Home Discharge orders & Medications Prescriptions: New hydrocodone-acetaminophen 5-325 mg tablet 1 tab PO Q8H PRN (Reason: pain) Qty: 10 0RF Continued estradiol 0.01 % (0.1 mg/gram) cream See Rx Instructions .ROUTE .COMPLEX Qty: 42.5 11RF Dose Instruction: INSERT 1 GRAM VAGINALLY DAILY FOR 14 DAYS, THEN AT BEDTIME 3 NIGHTS EACH WEEK Rx Instructions: INSERT 1 GRAM VAGINALLY DAILY FOR 14 DAYS, THEN AT BEDTIME 3 NIGHTS EACH WEEK oxyquinoline-sod.lauryl sulfat 0.025-0.01 % gel 1 ea vaginal .1-2XW Qty: 226.8 2RF CHOLECALCIFEROL (VITAMIN D) See Rx Instructions PO BID Qty: 180 3RF Rx Instructions: 2000iu with Calcium 600mg orally twice a day; Centrum Silver 0.4 mg-300 mcg- 250 mcg tablet 1 tab PO DAILY Qty: 90 3RF Cranberry Supplement 500 mg PO .QD Qty: 90 3RF Calcium with Vitamin D 1 cap PO BID Qty: 180 3RF Rx Instructions: Take 600mg with Vitamin D3 2000iu by mouth twice daily. omega-3 acid ethyl esters [Lovaza] 1 gram capsule 1 cap PO BID Qty: 180 2RF PreserVision AREDS 2 Plus MV 200 mcg-15 mcg- 5 mg-1 mg capsule 1 cap PO DAILY pravastatin 20 mg tablet 20 mg PO QPM Qty: 90 3RF Fish Oil (#FISH OIL) See Rx Instructions PO .COMPLEX Qty: 0 Rx Instructions: 1000mg capsule twice per day for elevated triglycerides orally; vitamin B complex Capsule 1 cap PO DAILY Follow up/Referrals: Blaise Wilcox MD [Primary Care Provider] - Visit Report/Discharge Packet Stand Alone Forms: Patient Portal/API, Stroke Signs & Symptoms Discharge Data Primary Care Provider: Blaise Wilcox V Quality VTE Deep Vein Thrombosis/Pulmonary Embolism Present on Admission: No
--- NOTE | 2024-04-09 12:48 | CM.DPC ---
DCP Discharge Home Per Surgeon, pt was able to tolerate her advancing diet and ambulated with PT and off IV-Abx and medically stable to d/c home with outpt f/u. Per PT, recommending home with assist. Per RN, no concerns noted and family plans to provide transport today. USMAN Mathew
== END 2024-04-09 13:50 | disposition home or self-care (01) | DRG 331 ==
LOC: ED 15:23 → AC 19:05
PROVIDERS: Admitting Provider Surgery; Emergency Provider Emergency Medicine; Family Provider Nurse Practitioner; PCP Internal Medicine; Referring Provider Emergency Medicine; Visit Provider Surgery
PROC: 0DBA0ZZ Excision of Jejunum, Open Approach (ICD-10-PCS; CPT 49000; principal; 2024-04-06 20:00)
DX: K57.00 Diverticulitis of small intestine with perforation and abscess without bleeding (principal); E78.5 Hyperlipidemia, unspecified; N95.1 Menopausal and female climacteric states; E78.2 Mixed hyperlipidemia; Z85.820 Personal history of malignant melanoma of skin; R03.0 Elevated blood-pressure reading, without diagnosis of hypertension
CPT/HCPCS: 36415; 44120; 51798; 74177; 80048; 80053; 80061; 81003; 81015; 83690; 84443; 85025; 85027; 85610; 87077; 87086; 87186; 93005; 93010; 94760; 96374; 96375; 97116; 97161; 97530; 99222; 99284; 99285; C9290; J0136; J0330; J1100; J1170; J1650; J2270; J2405; J2543; J2704; J3010; J3410; J3490; Q9967

== ENCOUNTER → 2024-07-10 12:46 | Outpatient (CLI) | payer MEDICARE, OTHER, SELFPAY ==
[2024-04-06 22:58] VITALS: BMI 22.9
--- NOTE | 2024-07-10 12:47 | DI.MG.S_ITS ---
BILATERAL DIGITAL SCREENING MAMMOGRAM 3D/2D WITH CAD: 07/10/2024 CLINICAL: Routine screening. Comparison is made to exams dated: 07/06/2023 mammogram, 06/05/2022 mammogram, and 05/15/2021 mammogram - [facility]. There are scattered areas of fibroglandular density (category b / 25%-50% glandular tissue). Current study was also evaluated with a Computer Aided Detection (CAD) system. There are benign vascular calcifications in both breasts. No significant masses, calcifications, or other findings are seen in either breast. There has been no significant interval change. IMPRESSION: BENIGN There is no mammographic evidence of malignancy. A 1 year screening mammogram is recommended. Based on the Tyrer Cuzick model (a risk assessment model) the patient's lifetime risk is 1.8% and her 10 year risk is 0.0%. According to the ACR, ACS, and NCCN guidelines, an annual breast MRI exam along with mammogram is recommended if the patient's lifetime risk is 20% or greater. This exam was interpreted at Station ID: [id number]. NOTE: For mammograms, a report in lay terms will be sent to the patient. Approximately 15% of breast malignancies will not be visualized mammographically. In the management of a palpable breast mass, a negative mammogram must not discourage biopsy of a clinically suspicious lesion. Electronically Signed By: Corbin nicholas/vivien:07/10/2024 17:20:57 letter sent: Normal Exam ACR BI-RADS Category 2: Benign
== END ==
PROVIDERS: Family Provider Nurse Practitioner; PCP Internal Medicine; Referring Provider Internal Medicine; Visit Provider Internal Medicine
DX: Z12.31 Encounter for screening mammogram for malignant neoplasm of breast (principal)
CPT/HCPCS: 77063; 77067

== ENCOUNTER 2024-08-20 16:26 | Emergency (ER) | payer MEDICARE, OTHER, SELFPAY ==
[2024-04-06 22:58] VITALS: BMI 22.9
[2024-08-20 16:47] VITALS: BP 124/69; PULSE 108; RESP 16; TEMP 37.1; O2SAT 98; BMI 21.7
[2024-08-20 17:31] VITALS: PULSE 103; O2SAT 94
[2024-08-20 17:32] VITALS: BP 140/69; PULSE 104; O2SAT 94
[2024-08-20 17:40] LABS: Add Manual Diff / Slide Review NO; Basophils Absolute Auto 0 /uL (0-100); Basophils Percent Auto 0.4 % (0-2); Eosinophils Absolute Auto 0 /uL (0-450); Eosinophils Percent Auto 0.2 % (2-4); Hematocrit 42.3 % (36-46); Hemoglobin 14.2 g/dL (12.0-16.0); Lymphocytes Absolute Auto 1700 /uL (1100-4500); Lymphocytes Percent Auto 14.2 % (25-40); Mean Corpuscular HGB Conc 33.5 % (30-36); Mean Corpuscular Hemoglobin 30.2 PG (26-34); Mean Corpuscular Volume 90.2 fL (80-100); Monocytes Absolute Auto 800 /uL (0-900); Monocytes Percent Auto 6.2 % (3-14); Neutrophils Absolute Auto 9600 /uL (1500-7000); Platelet Count 282 X10^3/uL (150-400); Red Blood Cell Count 4.69 X10^6/uL (4.0-5.2); Red Cell Distribution Width 12.7 % (11.6-14.8); White Blood Cell Count 12.1 X10^3/uL (4.5-11.0)
[2024-08-20 17:48] LABS: PTT Partial Thromboplastin Tim 37 SECONDS (25.1-36.5)
[2024-08-20 17:49] LABS: Alanine Aminotransferase 29 IU/L (<35); Albumin 4.5 g/dL (3.5-5.0); Albumin Globulin Ratio 1.6 (1.0-2.8); Alkaline Phosphatase 53 U/L (38-126); Aspartate Aminotransferase 38 IU/L (14-36); BUN Creatinine Ratio 24.2 (6-22); Bilirubin Total 0.5 mg/dL (0.2-1.3); Blood Urea Nitrogen 16 mg/dL (7-17); Calcium 9.8 mg/dL (8.4-10.2); Carbon Dioxide 26 mmol/L (22-32); Chloride 106 mmol/L (98-107); Estimated Glomerular Filt Rate > 60 mL/min (>60); Globulin 2.9 g/dL (1.7-4.1); Glucose 126 mg/dL (80-110); HEMOLYSIS 30 (0-50); Sodium 138 mmol/L (137-145); Total Protein 7.4 g/dL (6.3-8.2)
[2024-08-20 18:00] VITALS: BP 136/77; PULSE 100; RESP 14; O2SAT 94
--- NOTE | 2024-08-20 18:17 | ED.GIBLEED ---
HPI - GI Bleed General Chief complaint: GI Bleed Stated complaint: rectal bleeding Time Seen by Provider: 08/20/24 17:26 Source: patient Mode of arrival: Family Vehicle Limitations: no limitations History of Present Illness HPI Narrative: 78m year old female history of dyslipidemia, prior lower abdominal surgery ex lap with reanastomosis. Patient states she has had chronic constipation usually treated with ruzu-poj-mtonykt medications but has been more constipated last 3 days with what feels like a large ball of the rectal vault and been having overflow fecal incontinence. Patient states she tried to disimpact herself has a little bit of stool but not as much she would like. She also notes tried using a suppository and noticed some blood that was bright red mixed in her stool. She denies any pain she feels pressure the rectal vault and that there is a large stool ball. She states has not had any bloody stools in the past. She denies fevers no nausea or vomiting. No abdominal pain. She denies any rectal pain. Patient states her only home medication is statin. Has allergy to propoxyphene. No regular tobacco. She was accompanied by a friend. Related Data Home Medications Medication Instructions Recorded Confirmed Fish Oil (#FISH OIL) See Rx Instructions PO .COMPLEX ##0 07/27/22 04/19/24 vitamin B complex 1 cap PO DAILY 03/14/24 04/19/24 mv-mn-folic 200 mcg-vit K 15 1 cap PO DAILY 03/29/24 04/19/24 mcg-lutein 5 mg-zeaxanthin 1 mg capsule (PreserVision AREDS 2 Plus Multivit) Previous Rx's Medication Instructions Recorded estradiol 0.01% (0.1 mg/gram) See Rx Instructions .Route 11/23/23 vaginal cream .COMPLEX #42.5 grams oxyquinoline 0.025 %-sodium lauryl 1 ea vaginal .1-2XW #226.8 grams 11/23/23 sulfate 0.01 % vaginal gel CHOLECALCIFEROL (VITAMIN D) See Rx Instructions PO BID #180 02/22/24 tabs Cranberry Supplement 500 mg PO .QD #90 caps 02/23/24 fjhivtme-jcd-roiqq acid 0.4 1 tab PO DAILY #90 tabs 02/23/24 mg-lycopene 300 mcg-lutein 250 mcg tablet (Centrum Silver) Calcium with Vitamin D 1 cap PO BID #180 tabs 03/01/24 omega-3 acid ethyl esters 1 gram 1 cap PO BID #180 caps 03/23/24 capsule (Lovaza) pravastatin 20 mg tablet 20 mg PO QPM #90 tabs 03/29/24 hydrocodone 5 mg-acetaminophen 325 1 tab PO Q8H PRN pain #14 tabs 04/09/24 mg tablet hydrocortisone 1 %-pramoxine 1 % 1 applic SD TID-QID PRN 08/20/24 rectal foam (Proctofoam HC) hemorrhoids #10 grams Allergies Allergy/AdvReac Type Severity Reaction Status Date / Time propoxyphene [From DARVON] Allergy Unknown Verified 04/19/24 13:34 Review of Systems Review of Systems ROS Unobtainable: All systems reviewed & are unremarkable except as noted in HPI and below Patient History Medical History Osteopenia History of melanoma Menopausal syndrome Right temporomandibular joint disorder, unspecified Atrophic vaginitis Mixed hyperlipidemia Prolapse of vaginal vault after hysterectomy Vaginal erosion secondary to pessary use Post-menopausal atrophic vaginitis Hayfever Fractures Malignant melanoma of skin of chin Mumps Measles Chicken pox Hyperlipidemia Contusion of right upper arm (10/23/15) Nasal bone fracture Surgical History Anesthesia Status post wrist surgery (~2008) History of bladder suspension procedure (2009) Status post hysterectomy (1970) Family History Brother No problems noted. Father MVA (motor vehicle accident) Mother No problems noted. Grandfather No problems noted. Grandmother No problems noted. Grandfather No problems noted. Grandmother No problems noted. Sister No problems noted. Social History details: 1987, son and daughter, retired household members: none Smoking Status: Never smoker alcohol intake: never Smoking Status: Never smoker Exam Narrative Exam Narrative: GENERAL: Alert and oriented x three, female in mild distress HEENT: Head normocephalic, atraumatic, EOMI, pupils reactive, face symmetric, moist mucous membranes NECK: Supple, full range of motion CARDIOVASCULAR: Regular rate and rhythm without murmurs, rubs or gallops. RESPIRATORY: Breath sounds equal bilaterally, no wheezes rales or rhonchi. ABDOMEN: Soft, nontender. Normoactive bowel sounds all 4 quadrants. No guarding or rebound, rigidity, no mass, on rectal exam patient has a large erythematous hemorrhoid that is soft and nontender to touch at the 7 o'clock position. Patient has a little bit of brown stool, no bright red blood appreciated. Patient on digital rectal exam has no masses but does have a large ball of stool present. KIMBERLI Brar was present as smooth stucco resurfacer for exam as well as disimpaction. : No CVA tenderness EXTREMITIES: Normal range of motion, no clubbing or edema. Neurovascularly intact NEUROLOGICAL: Cranial nerves II through XII grossly intact. Moving all extremities SKIN: Warm, dry, no petechiae, no rashes or lesions. Initial Vital Signs Initial Vital Signs: Vital Signs Temperature 98.7 F 08/20/24 16:47 Pulse Rate 108 H 08/20/24 16:47 Respiratory Rate 16 08/20/24 16:47 Blood Pressure 124/69 08/20/24 16:47 Pulse Oximetry 98 08/20/24 16:47 Oxygen Delivery Method Room Air 08/20/24 16:47 Course Orders Ordered: ED Orders 08/20/24 17:28 CBC Auto Diff [Complete Blood Count AUTO DIFF] Stat CMP [Comprehensive Metabolic Panel] Stat PT [Prothrombin Time INR] Stat PTT Partial Thromboplastin Torsten Stat Vital Signs Vital signs: Vital Signs - 8 hr 08/20/24 16:47 08/20/24 17:31 08/20/24 17:32 Temperature 98.7 F Pulse Rate 108 H 103 H Respiratory Rate 16 Blood Pressure 124/69 140/69 Pulse Oximetry 98 94 Oxygen Delivery Method Room Air 08/20/24 17:32 08/20/24 18:00 08/20/24 18:00 Temperature Pulse Rate 104 H 100 H Respiratory Rate 14 Blood Pressure 136/77 Pulse Oximetry 94 94 Oxygen Delivery Method Room Air 08/20/24 18:19 08/20/24 18:19 08/20/24 18:30 Temperature Pulse Rate 104 H 105 H Respiratory Rate Blood Pressure 141/67 H Pulse Oximetry 97 96 Oxygen Delivery Method 12/29/24 18:30 Temperature Pulse Rate Respiratory Rate Blood Pressure 137/72 Pulse Oximetry Oxygen Delivery Method MDM - GI Bleed Lab Data 08/20/24 17:28 08/20/24 17:28 Labs: Lab Results 08/20/24 Range/Units 17:28 WBC 12.1 H (4.5-11.0) X10^3/uL RBC 4.69 (4.0-5.2) X10^6/uL Hgb 14.2 (12.0-16.0) g/dL Hct 42.3 (36-46) % MCV 90.2 (80-100) fL MCH 30.2 (26-34) PG MCHC 33.5 (30-36) % RDW 12.7 (11.6-14.8) % Plt Count 282 (150-400) X10^3/uL Neut % (Auto) 79.0 H (50-75) % Lymph % (Auto) 14.2 L (25-40) % [place] % (Auto) 6.2 (3-14) % Eos % (Auto) 0.2 L (2-4) % Baso % (Auto) 0.4 (0-2) % Neut # (Auto) 9600 H (9818-5547) /uL Lymph # (Auto) 1700 (3078-8832) /uL [place] # (Auto) 800 (0-900) /uL Eos # (Auto) 0 (0-450) /uL Baso # (Auto) 0 (0-100) /uL PT 11.0 (9.4-12.5) SECONDS INR 1.0 (0.9-1.3) APTT 37 H (25.1-36.5) SECONDS Sodium 138 (137-145) mmol/L Potassium 4.0 (3.4-5.1) mmol/L Chloride 106 (98-107) mmol/L Carbon Dioxide 26 (22-32) mmol/L BUN 16 (7-17) mg/dL Creatinine 0.66 (0.52-1.04) mg/dL Estimated GFR > 60 (>60) mL/min BUN/Creatinine Ratio 24.2 H (6-22) Glucose 126 H (80-110) mg/dL Calcium 9.8 (8.4-10.2) mg/dL Total Bilirubin 0.5 (0.2-1.3) mg/dL AST 38 H (14-36) IU/L ALT 29 (<35) IU/L Alkaline Phosphatase 53 (38-126) U/L Total Protein 7.4 (6.3-8.2) g/dL Albumin 4.5 (3.5-5.0) g/dL Globulin 2.9 (1.7-4.1) g/dL Albumin/Globulin Ratio 1.6 (1.0-2.8) MDM Narrative Medical decision making narrative: CBC white count of 12, hemoglobin 14.2, platelets 282. CMP is normal except for glucose 126, AST 38, otherwise negative. On physical exam patient does have a large ball of stool present in the rectal vault. Had a small amount of disimpaction followed by enema and on re-evaluation patient had minimal stool output. But was able to reach larger ball of stool and was able to disimpact majority of this. Patient did not have any additional stool. She feels comfortable returning home. Does have a large hemorrhoid but is nontender. Discussed with patient plan of care to continue her current regimen but can add Dulcolax 1-2 tablets daily can use suppositories and enemas as needed. We will also give a script for Proctofoam topically. Discussed return precautions all questions answered. Discharge Plan Departure Patient Disposition: Home Clinical Impression: Constipation Instructions: DI for Constipation Activity Restrictions/Additional Instructions: I hope you continue to feel improved. I would recommend you continue your current regimen for constipation but you can add Dulcolax 1-2 tablets daily. If in adequate you can also add MiraLax daily. You can also use glycerin suppositories and or enemas as needed. You do have a large hemorrhoid at the rectum. You can use the Proctofoam topically daily. Prescription was sent to [facility] pharmacy in [place]. Please return for fevers, new or worsening abdominal back or flank pain any vomiting, if you are not having any bowel movements for 24 hours, new bleeding or other new or concerning changes. Prescriptions: New Proctofoam HC 1-1 % foam 1 applic SD TID-QID PRN (Reason: hemorrhoids) Qty: 10 0RF No Action estradiol 0.01 % (0.1 mg/gram) cream See Rx Instructions .ROUTE .COMPLEX Qty: 42.5 11RF Dose Instruction: INSERT 1 GRAM VAGINALLY DAILY FOR 14 DAYS, THEN AT BEDTIME 3 NIGHTS EACH WEEK Rx Instructions: INSERT 1 GRAM VAGINALLY DAILY FOR 14 DAYS, THEN AT BEDTIME 3 NIGHTS EACH WEEK oxyquinoline-sod.lauryl sulfat 0.025-0.01 % gel 1 ea vaginal .1-2XW Qty: 226.8 2RF CHOLECALCIFEROL (VITAMIN D) See Rx Instructions PO BID Qty: 180 3RF Rx Instructions: 2000iu with Calcium 600mg orally twice a day; Centrum Silver 0.4 mg-300 mcg- 250 mcg tablet 1 tab PO DAILY Qty: 90 3RF Cranberry Supplement 500 mg PO .QD Qty: 90 3RF Calcium with Vitamin D 1 cap PO BID Qty: 180 3RF Rx Instructions: Take 600mg with Vitamin D3 2000iu by mouth twice daily. omega-3 acid ethyl esters [Lovaza] 1 gram capsule 1 cap PO BID Qty: 180 2RF PreserVision AREDS 2 Plus MV 200 mcg-15 mcg- 5 mg-1 mg capsule 1 cap PO DAILY pravastatin 20 mg tablet 20 mg PO QPM Qty: 90 3RF Fish Oil (#FISH OIL) See Rx Instructions PO .COMPLEX Qty: 0 Rx Instructions: 1000mg capsule twice per day for elevated triglycerides orally; vitamin B complex Capsule 1 cap PO DAILY hydrocodone-acetaminophen 5-325 mg tablet 1 tab PO Q8H PRN (Reason: pain) Qty: 14 0RF Referrals: Blaise Wilcox MD [Primary Care Provider] - Stand Alone Forms: Patient Portal/API/Survey
[2024-08-20 18:19] VITALS: BP 141/67; PULSE 104; O2SAT 97
[2024-08-20 18:30] VITALS: BP 137/72; PULSE 105; O2SAT 96
--- NOTE | 2024-08-22 09:51 | PC.NURSE ---
I spoke with [facility] about prescription for Proctofoam which they do not carry, request was made to switch to hemorrhoid cream instead. This was okayed by Dr. Kiran and prescription was changed at this time.
== END 2024-08-20 19:16 | disposition home or self-care (01) ==
PROVIDERS: Emergency Medicine; Emergency Provider Emergency Medicine; Family Provider Nurse Practitioner; PCP Internal Medicine
DX: K59.00 Constipation, unspecified (principal)
CPT/HCPCS: 36415; 80053; 85025; 85610; 85730; 99283

== ENCOUNTER → 2024-09-06 11:07 | Outpatient (CLI) | payer MEDICARE, OTHER, SELFPAY ==
[2024-04-06 22:58] VITALS: BMI 22.9
[2024-09-06 12:50] LABS: TSH w/ Reflex to FT4 0.13 uIU/mL (0.47-4.68)
[2024-09-06 13:14] LABS: Free T4, Direct Thyroxine 0.91 ng/dL (0.78-2.19)
== END ==
LOC: LAB 11:08
PROVIDERS: Family Provider Nurse Practitioner; PCP Internal Medicine; Referring Provider Obstetrics & Gynecology; Visit Provider Obstetrics & Gynecology
DX: K59.00 Constipation, unspecified (principal)
CPT/HCPCS: 36415; 84439; 84443

== ENCOUNTER → 2024-10-19 08:38 | Outpatient (CLI) | payer MEDICARE, OTHER, SELFPAY ==
[2024-04-06 22:58] VITALS: BMI 22.9
[2024-10-19 10:34] LABS: TSH w/ Reflex to FT4 3.35 uIU/mL (0.47-4.68)
== END ==
LOC: LAB 08:39
PROVIDERS: Family Provider Nurse Practitioner; PCP Internal Medicine; Referring Provider Internal Medicine; Visit Provider Internal Medicine
DX: R79.89 Other specified abnormal findings of blood chemistry (principal)
CPT/HCPCS: 36415; 84443

== ENCOUNTER 2025-08-08 09:55 | Emergency (ER) | payer MEDICARE, OTHER, SELFPAY ==
[2024-04-06 22:58] VITALS: BMI 22.9
[2025-08-08 09:59] VITALS: BP 164/60; PULSE 84; RESP 16; TEMP 36.1; O2SAT 98; BMI 20.7
[2025-08-08 10:58] LABS: Add Manual Diff / Slide Review NO; Hematocrit 43.0 % (36-46); Hemoglobin 14.6 g/dL (12.0-16.0); Lymphocytes Absolute Auto 2200 /uL (1100-4500); Mean Corpuscular HGB Conc 34.0 % (30-36); Mean Corpuscular Hemoglobin 30.2 PG (26-34); Mean Corpuscular Volume 88.7 fL (80-100); Platelet Count 278 X10^3/uL (150-400)
[2025-08-08] MEDS: SODIUM CHLORIDE 0.9% 1,000 ML 1000 ML IV (11:17)
--- NOTE | 2025-08-08 11:22 | ED.NAVMDI ---
HPI - Nausea/Vomiting/Diarrhea General Chief complaint: Nausea/Vomiting/Diarrhea Stated complaint: diarrhea since sun, lightheaded Time Seen by Provider: 08/08/25 10:42 Source: patient Mode of arrival: Ambulatory History of Present Illness HPI Narrative: Patient is a 79-year-old female with history of hyperlipidemia presenting today with 3 days of diarrhea. She reports it started off as black and dark but is now clear. She is not on any antiplatelet or anti coagulation medication. She does not have any nausea vomiting or abdominal pain. She has not had any fever. She has had decrease in appetite. No chest pain dizziness, mildly lightheaded without any syncope. She is tolerating fluid. She denies any recent antibiotics no one else is sick at home Related Data Home Medications ?Medication ?Instructions ?Recorded ?Confirmed Fish Oil (#FISH OIL) See Rx Instructions PO .COMPLEX ##0 07/27/22 05/02/25 vitamin B complex 1 cap PO DAILY 03/14/24 05/02/25 mv-mn-folic 200 mcg-vit K 15 1 cap PO DAILY 03/29/24 05/02/25 mcg-lutein 5 mg-zeaxanthin 1 mg capsule (PreserVision AREDS 2 Plus Multivit) Previous Rx's ?Medication ?Instructions ?Recorded CHOLECALCIFEROL (VITAMIN D) See Rx Instructions PO BID #180 02/22/24 tabs Cranberry Supplement 500 mg PO .QD #90 caps 02/23/24 gzkrqywu-bac-tehmg acid 0.4 1 tab PO DAILY #90 tabs 02/23/24 mg-lycopene 300 mcg-lutein 250 mcg tablet (Centrum Silver) Calcium with Vitamin D 1 cap PO BID #180 tabs 03/01/24 oxyquinoline 0.025 %-sodium lauryl 1 ea vaginal 2XW #226.8 grams 01/31/25 sulfate 0.01 % vaginal gel (Trimo-Zelaya Jelly) omega-3 acid ethyl esters 1 gram 1 cap PO BID #180 caps 03/19/25 capsule (Lovaza) pravastatin 20 mg tablet 20 mg PO QPM #90 tabs 05/02/25 estradiol 0.01% (0.1 mg/gram) 1 g vaginal 3XW #42.5 grams 05/07/25 vaginal cream cephalexin 500 mg capsule 500 mg PO BID 5 days #10 caps 08/08/25 loperamide 2 mg capsule (Imodium 2 mg PO Q6H PRN loose stool #10 08/08/25 A-D) caps nitrofurantoin 100 mg PO Q12H 5 days #10 caps 08/08/25 monohydrate/macrocrystals 100 mg capsule (Macrobid) Allergies Allergy/AdvReac Type Severity Reaction Status Date / Time propoxyphene (From DARVON) Allergy Unknown Verified 05/02/25 10:37 Patient History Medical History Prolapse of vaginal vault after hysterectomy Osteopenia History of melanoma Menopausal syndrome Right temporomandibular joint disorder, unspecified Atrophic vaginitis Mixed hyperlipidemia Vaginal erosion secondary to pessary use Post-menopausal atrophic vaginitis Hayfever Fractures Malignant melanoma of skin of chin Mumps Measles Chicken pox Hyperlipidemia Contusion of right upper arm (10/23/15) Nasal bone fracture Surgical History Anesthesia Status post wrist surgery (~2008) History of bladder suspension procedure (2009) Status post hysterectomy (1970) Family History Brother No problems noted. Father MVA (motor vehicle accident) Mother No problems noted. Grandfather No problems noted. Grandmother No problems noted. Grandfather No problems noted. Grandmother No problems noted. Sister No problems noted. Social History details: 1987, son and daughter, retired household members: none alcohol intake: never Smoking Status: Never smoker Exam Initial Vital Signs Initial Vital Signs: Vital Signs Temperature 97 F L 08/08/25 09:59 Pulse Rate 84 08/08/25 09:59 Respiratory Rate 16 08/08/25 09:59 Blood Pressure 164/60 H 08/08/25 09:59 Pulse Oximetry 98 08/08/25 09:59 Oxygen Delivery Method Room Air 08/08/25 09:59 GENERAL: Alert pleasant 79-year-old female and in no acute distress. HEENT: Head atraumatic,EOMI, pupils reactive, face symmetric, moist mucous membranes CARDIOVASCULAR: Regular rate and rhythm without murmurs, rubs or gallops. RESPIRATORY: Breath sounds equal bilaterally, no wheezes rales or rhonchi. ABDOMEN: Soft, nontender. Normoactive bowel sounds all 4 quadrants. No guarding or rebound. EXTREMITIES: Normal range of motion, no clubbing or edema. Neurovascularly intact NEUROLOGICAL: Alert and oriented x4.Normal gait and speech. SKIN: Warm, dry, no laceration, no petechiae, no rashes or lesions. Course Orders Ordered: ED Orders 08/08/25 10:25 CBC Auto Diff [Complete Blood Count AUTO DIFF] Stat 08/08/25 11:05 CMP [Comprehensive Metabolic Panel] Stat Lactate (Lactic Acid) Stat 08/08/25 11:16 Urine Culture Stat Urine Microscopic Stat Discontinued Medications Sodium Chloride (Normal Saline 0.9%) 1,000 mls @ 1,000 mls/hr IV BOLUS ONE Stop: 08/08/25 11:42 Last Infusion: 08/08/25 12:56 Dose: Infused Documented By: [facility] Admin: 08/08/25 11:17 Dose: 1,000 mls/hr Documented By: RENNY Ondansetron HCl (Ondansetron 4 Mg/2 Ml Inj) 4 mg IV NOW ONE Stop: 08/08/25 10:44 Last Admin: 08/08/25 11:17 Dose: Not Given Documented By: RENNY Vital Signs Vital signs: Vital Signs - 8 hr 08/08/25 09:59 08/08/25 11:23 08/08/25 11:23 Temperature 97 F L Pulse Rate 84 77 Respiratory Rate 16 Blood Pressure 164/60 H 129/71 Pulse Oximetry 98 95 Oxygen Delivery Method Room Air 08/08/25 11:30 08/08/25 11:30 08/08/25 13:46 Temperature 97.8 F Pulse Rate 77 81 Respiratory Rate 18 Blood Pressure 134/71 128/62 Pulse Oximetry 95 94 Oxygen Delivery Method Room Air Room Air MDM - Nausea/Vomiting/Diarrhea Lab Data 08/08/25 10:25 08/08/25 11:05 Labs: Lab Results 08/08/25 08/08/25 08/08/25 Range/Units 10:25 11:05 11:16 WBC 6.1 (4.5-11.0) X10^3/uL RBC 4.85 (4.0-5.2) X10^6/uL Hgb 14.6 (12.0-16.0) g/dL Hct 43.0 (36-46) % MCV 88.7 (80-100) fL MCH 30.2 (26-34) PG MCHC 34.0 (30-36) % RDW 12.6 (11.6-14.8) % Plt Count 278 (150-400) X10^3/uL Neut % (Auto) 57.6 (50-75) % Lymph % (Auto) 35.3 (25-40) % [place] % (Auto) 5.6 (3-14) % Eos % (Auto) 1.1 L (2-4) % Baso % (Auto) 0.4 (0-2) % Neut # (Auto) 3500 (8532-4735) /uL Lymph # (Auto) 2200 (1936-3808) /uL [place] # (Auto) 300 (0-900) /uL Eos # (Auto) 100 (0-450) /uL Baso # (Auto) 0 (0-100) /uL Sodium 141 (137-145) mmol/L Potassium 4.0 (3.4-5.1) mmol/L Chloride 107 (98-107) mmol/L Carbon Dioxide 26 (22-32) mmol/L BUN 12 (7-17) mg/dL Creatinine 0.68 (0.52-1.04) mg/dL Estimated GFR > 60 (>60) mL/min BUN/Creatinine Ratio 17.6 (6-22) Glucose 106 H (70-99) mg/dL Lactate 1.2 (0.7-2.1) mmol/L Calcium 9.3 (8.4-10.2) mg/dL Total Bilirubin 0.6 (0.2-1.3) mg/dL AST 29 (14-36) IU/L ALT 21 (<35) IU/L Alkaline Phosphatase 56 (38-126) U/L Total Protein 7.8 (6.3-8.2) g/dL Albumin 4.6 (3.5-5.0) g/dL Globulin 3.2 (1.7-4.1) g/dL Albumin/Globulin Ratio 1.4 (1.0-2.8) Urine RBC 0-1/hpf (0-5/HPF) Urine WBC 10-30/hpf H (0-5/HPF) Ur Squamous Epith Cells 10-30 /hpf H (0-5/HPF) Urine Bacteria Many (>30) H (None) Ur Culture Indicated? Specimen cultured Vol Urine Centrifuged 10ml (spun) Urine Dip Bedside Urine Glucose Negative Bedside Urine Bilirubin - Negative Bedside Urine Ketone - Negative Urine Specific [place] 1.015 Bedside Urine Occult Blood + Bedside Urine pH 6.5 Bedside Urine Protein +/- 15 Bedside Urine Urobilinogen - Negative Bedside Urine Nitrite + Positive Bedside Urine Leukocytes + 70 Esterase MDM Narrative Medical decision making narrative: Patient 79-year-old female presenting today with diarrhea. It is clear now. Abdomen is soft and nontender. Vitals are stable not tachycardic or hypotensive. Blood work has been reviewed No anemia no leukocytosis Electrolytes are within normal limits Lactate 1 point Urinalysis positive for nitrite Patient is given food and drink here in the ED along with a L of saline. So far she has been unable to produce a stool sample. Patient reports that it does hurt down there hard to tell what is actually hurting. She might have symptoms of a UTI. Previous records show the she had drug resistant E coli to cephalexin. She has no evidence of sepsis. Discharge Plan Departure Patient Disposition: Home Clinical Impression: Gastroenteritis, Acute UTI Instructions: DI for Viral Gastroenteritis -- Adult Activity Restrictions/Additional Instructions: *You have been diagnosed with gastroenteritis *What to do: Increase fluids as tolerated recommend Gatorade or Gatorade like product. May increase food as tolerated as well. Please talk to your primary care provider about outpatient stool sample *Continue to take medications as directed Zofran 4 mg every 8 hours only if needed for nausea or vomiting *Follow up with your primary care provider in 2-3 days or call [phone] *Return to ER if you should have inability to tolerate fluids dizziness lightheadedness nausea vomiting or any new, worsening or concerning symptoms Prescriptions: New loperamide [Imodium A-D] 2 mg capsule 2 mg PO Q6H PRN (Reason: loose stool) Qty: 10 0RF cephalexin 500 mg capsule 500 mg PO BID 5 Days Qty: 10 0RF nitrofurantoin monohyd/m-cryst [Macrobid] 100 mg capsule 100 mg PO Q12H 5 Days Qty: 10 0RF Rx Instructions: must administer with a meal/food No Action CHOLECALCIFEROL (VITAMIN D) See Rx Instructions PO BID Qty: 180 3RF Rx Instructions: 2000iu with Calcium 600mg orally twice a day; Centrum Silver 0.4 mg-300 mcg- 250 mcg tablet 1 tab PO DAILY Qty: 90 3RF Cranberry Supplement 500 mg PO .QD Qty: 90 3RF Calcium with Vitamin D 1 cap PO BID Qty: 180 3RF Rx Instructions: Take 600mg with Vitamin D3 2000iu by mouth twice daily. Trimo-Zelaya Jelly 0.025-0.01 % gel 1 ea vaginal 2XW Qty: 226.8 1RF omega-3 acid ethyl esters [Lovaza] 1 gram capsule 1 cap PO BID Qty: 180 2RF estradiol 0.01 % (0.1 mg/gram) cream 1 g vaginal 3XW Qty: 42.5 2RF PreserVision AREDS 2 Plus MV 200 mcg-15 mcg- 5 mg-1 mg capsule 1 cap PO DAILY Fish Oil (#FISH OIL) See Rx Instructions PO .COMPLEX Qty: 0 Rx Instructions: 1000mg capsule twice per day for elevated triglycerides orally; vitamin B complex Capsule 1 cap PO DAILY pravastatin 20 mg tablet 20 mg PO QPM Qty: 90 3RF Referrals: Blaise Wilcox MD [Primary Care Provider, Internal Medicine] Stand Alone Forms: Patient Portal/API
[2025-08-08 11:23] VITALS: BP 129/71; PULSE 77; O2SAT 95
[2025-08-08 11:23] LABS: Lactate (Lactic Acid) 1.2 mmol/L (0.7-2.1)
[2025-08-08 11:24] LABS: Alanine Aminotransferase 21 IU/L (<35); Albumin 4.6 g/dL (3.5-5.0); Albumin Globulin Ratio 1.4 (1.0-2.8); Alkaline Phosphatase 56 U/L (38-126); Blood Urea Nitrogen 12 mg/dL (7-17); Calcium 9.3 mg/dL (8.4-10.2); Carbon Dioxide 26 mmol/L (22-32); Chloride 107 mmol/L (98-107); Estimated Glomerular Filt Rate > 60 mL/min (>60); Globulin 3.2 g/dL (1.7-4.1); Glucose 106 mg/dL (70-99); HEMOLYSIS < 15 (0-50); Potassium 4.0 mmol/L (3.4-5.1); Sodium 141 mmol/L (137-145); Total Protein 7.8 g/dL (6.3-8.2)
[2025-08-08 11:30] VITALS: BP 134/71; PULSE 77; O2SAT 95
[2025-08-08 11:41] LABS: Culture Indicated Urine Specimen Cultured
[2025-08-08 13:46] VITALS: BP 128/62; PULSE 81; RESP 18; TEMP 36.6; O2SAT 94
== END 2025-08-08 13:31 | disposition home or self-care (01) ==
PROVIDERS: Emergency Provider Emergency Medicine; PCP Internal Medicine
DX: K52.9 Noninfective gastroenteritis and colitis, unspecified (principal); N39.0 Urinary tract infection, site not specified; R42 Dizziness and giddiness
CPT/HCPCS: 36415; 80053; 81003; 81015; 83605; 85025; 87077; 87086; 87186; 96360; 99284; J7030

== ENCOUNTER → 2025-08-10 08:12 | Outpatient (CLI) | payer MEDICARE, OTHER, SELFPAY ==
[2024-04-06 22:58] VITALS: BMI 22.9
[2025-08-10 10:11] LABS: Clostridium Difficile Tox PCR Negative for C. diff (Negative)
== END ==
PROVIDERS: PCP Internal Medicine; Referring Provider Internal Medicine; Visit Provider Internal Medicine
DX: K52.9 Noninfective gastroenteritis and colitis, unspecified (principal)
CPT/HCPCS: 87493